=== PATIENT | female | born 1950 | race Caucasian/White ===

== ENCOUNTER → 2018-01-02 | Outpatient (CLI) | payer MEDICARE, MEDICAID ==
[~2018-01-02] MED LIST: ASPI81TA27 PO; ATEN-60 PO; CHOL20009 PO; IOHEXOL 350 MG/ML 100ML IJ ONE; LIS20T PO; OMEP20CA74 OR; READI-CAT 2 (BARIUM SULF)(VANILLA SMOOTHIE) 450ML ONE; SIMV10TA84 PO; TRIA50TA2 PO
[2018-01-02 12:10] VITALS: BP_SYST 122; BP_SYST 133; BP_DIAS 73; BP_DIAS 77
[2018-01-02 16:04] LABS: Urine Blood Negative /uL (Negative); Urine Specific Gravity 1.019 (1.001-1.035)
[2018-01-02 16:11] LABS: Basophils # (auto) 0 uL; Basophils % (auto) 0.6 % (0.0-2.0); Eosinophils # (auto) 0.1 uL; Eosinophils % (auto) 1.7 % (0.0-7.0); Hematocrit 43.7 % (36.0-46.0); Hemoglobin 14.3 g/dL (12.2-16.2); Lymphocytes # (auto) 2.4 uL; Lymphocytes % (auto) 30.5 % (10.0-50.0); Mean Corpuscular Hemoglobin 27.5 pg (28.0-32.0); Mean Corpuscular Hgb Conc. 32.7 g/dL (32.0-36.0); Mean Corpuscular Volume 84.1 fL (80.0-100.0); Monocytes # (auto) 0.9 uL; Monocytes % (auto) 10.9 % (0.0-12.0); Neutrophils # (auto) 4.4 uL; Neutrophils % (auto) 56.3 % (37.0-80.0); Nucleated Red Blood Cells % 0.9 %; Platelet Count (auto) 288 10^3/uL (140-450); Red Cell Distribution Width 13.9 % (11.8-14.3); White Blood Cell 7.9 10^3/uL (4.4-10.8)
[2018-01-02 16:17] LABS: Albumin 4.4 g/dL (3.4-5.0); Bilirubin, Direct 0.1 mg/dL (0-0.2); Bilirubin, Total 0.4 mg/dL (0.2-1.0); Calcium 9.9 mg/dL (8.5-10.1); Potassium 3.7 mmol/L (3.5-5.1); Total Protein 8.3 g/dL (6.4-8.2)
[2018-01-02 16:22] LABS: Thyroid Stimulating Hormone 2.9 uIU/mL (0.358-3.74)
== END | disposition home or self-care (01) ==
LOC: Rad HDHVI 11:58
PROVIDERS: ATTEND Internal Medicine Cardiovascular Disease
DX: E11.9 Type 2 diabetes mellitus without complications (principal); I10 Essential (primary) hypertension; D64.9 Anemia, unspecified; E78.5 Hyperlipidemia, unspecified; E03.9 Hypothyroidism, unspecified; N39.0 Urinary tract infection, site not specified; E55.9 Vitamin D deficiency, unspecified; K44.9 Diaphragmatic hernia without obstruction or gangrene; I70.0 Atherosclerosis of aorta; R97.8 Other abnormal tumor markers
CPT/HCPCS: 36415; 74177; 80048; 80061; 80076; 81003; 82306; 82565; 83036; 84443; 84702; 85025; 96360; G0463; J7050; Q9967

== ENCOUNTER → 2018-02-16 | Outpatient (CLI) | payer MEDICARE, MEDICAID ==
[~2018-02-16] VITALS: Ht 157.5 cm; Wt 67.1 kg
[~2018-02-16] MED LIST changes: +ADENOSINE 56 MG in GIVE UN-DILUTED 0 ML IV ONE; +ADENOSINE 90 MG/30 ML INJ IV ONE; -IOHEXOL 350 MG/ML 100ML IJ ONE; -READI-CAT 2 (BARIUM SULF)(VANILLA SMOOTHIE) 450ML ONE
== END | disposition home or self-care (01) ==
LOC: Rad HDHVI 08:25
PROVIDERS: ATTEND Internal Medicine Cardiovascular Disease
DX: I10 Essential (primary) hypertension (principal); R00.2 Palpitations; E11.9 Type 2 diabetes mellitus without complications; E78.5 Hyperlipidemia, unspecified; E03.9 Hypothyroidism, unspecified
CPT/HCPCS: 78452; 93005; 93306; 96374; 96375; A9500; J0153

== ENCOUNTER → 2018-04-14 | Outpatient (CLI) | payer MEDICARE, MEDICAID ==
[~2018-04-14] MED LIST changes: -ADENOSINE 56 MG in GIVE UN-DILUTED 0 ML IV ONE; -ADENOSINE 90 MG/30 ML INJ IV ONE
[2018-04-14 15:52] LABS: Urine Blood Negative /uL (Negative); Urine Specific Gravity 1.011 (1.001-1.035)
== END | disposition home or self-care (01) ==
LOC: LAB 11:12
PROVIDERS: ATTEND Internal Medicine Cardiovascular Disease
DX: N39.0 Urinary tract infection, site not specified (principal); I10 Essential (primary) hypertension; E11.9 Type 2 diabetes mellitus without complications; E03.9 Hypothyroidism, unspecified; E78.5 Hyperlipidemia, unspecified; Z87.891 Personal history of nicotine dependence; Z88.8 Allergy status to other drugs, medicaments and biological substances; Z98.51 Tubal ligation status
CPT/HCPCS: 81003; 87086; 87088; 87186

== ENCOUNTER → 2019-05-10 | Outpatient (CLI) | payer MEDICARE, MEDICAID ==
[~2019-05-10] MED LIST changes: +ASPI-404 PO; -ASPI81TA27 PO
[2019-05-10 12:27] LABS: Urine Blood Negative /uL (Negative); Urine Specific Gravity 1.023 (1.001-1.035)
[2019-05-10 12:37] LABS: Basophils # (auto) 0 uL; Basophils % (auto) 0.4 % (0.0-2.0); Eosinophils # (auto) 0.1 uL; Eosinophils % (auto) 1.5 % (0.0-7.0); Hematocrit 41.4 % (36.0-46.0); Hemoglobin 13.9 g/dL (12.2-16.2); Lymphocytes # (auto) 1.7 uL; Lymphocytes % (auto) 22.8 % (10.0-50.0); Mean Corpuscular Hemoglobin 29.4 pg (28.0-32.0); Mean Corpuscular Hgb Conc. 33.7 g/dL (32.0-36.0); Mean Corpuscular Volume 87.3 fL (80.0-100.0); Monocytes # (auto) 0.5 uL; Monocytes % (auto) 7.2 % (0.0-12.0); Neutrophils % (auto) 68.1 % (37.0-80.0); Platelet Count (auto) 269 10^3/uL (140-450); Red Blood Cells 4.74 10^6/uL (4.0-5.20); Red Cell Distribution Width 13.6 % (11.8-14.3); White Blood Cell 7.4 10^3/uL (4.4-10.8)
[2019-05-10 12:42] LABS: Albumin 3.9 g/dL (3.4-5.0); Potassium 3.7 mmol/L (3.5-5.1)
[2019-05-10 12:48] LABS: BUN/Creatinine Ratio 20.8; Bilirubin, Total 0.2 mg/dL (0.2-1.0); Calcium 9.4 mg/dL (8.5-10.1); Total Protein 7.7 g/dL (6.4-8.2)
[2019-05-10 12:53] LABS: Free T4 (Free Thyroxine) 1.01 ng/dL (0.89-1.76)
== END | disposition home or self-care (01) ==
LOC: LAB 09:05
PROVIDERS: ATTEND Internal Medicine
DX: E03.9 Hypothyroidism, unspecified (principal); K90.9 Intestinal malabsorption, unspecified; N39.0 Urinary tract infection, site not specified; D51.9 Vitamin B12 deficiency anemia, unspecified; Z79.899 Other long term (current) drug therapy
CPT/HCPCS: 36415; 80053; 80061; 81003; 82306; 82607; 83036; 84439; 84443; 85025; 87086

== ENCOUNTER → 2019-07-09 | Outpatient (CLI) | payer MEDICARE, MEDICAID | END | disposition home or self-care (01) | LOC: Rad HDHVI 12:22 | PROVIDERS: ATTEND Internal Medicine Cardiovascular Disease | DX: I07.1 Rheumatic tricuspid insufficiency (principal); I70.0 Atherosclerosis of aorta; R00.2 Palpitations; I10 Essential (primary) hypertension | CPT/HCPCS: 71046; 93306 ==

== ENCOUNTER → 2019-08-28 | Outpatient (CLI) | payer MEDICARE, MEDICAID ==
[2019-08-28 12:32] LABS: Basophils # (auto) 0 uL; Basophils % (auto) 0.3 % (0.0-2.0); Eosinophils # (auto) 0 uL; Eosinophils % (auto) 0.3 % (0.0-7.0); Hematocrit 39.1 % (36.0-46.0); Hemoglobin 12.7 g/dL (12.2-16.2); Lymphocytes # (auto) 1.1 uL; Lymphocytes % (auto) 13.4 % (10.0-50.0); Mean Corpuscular Hemoglobin 28.9 pg (28.0-32.0); Mean Corpuscular Hgb Conc. 32.5 g/dL (32.0-36.0); Monocytes # (auto) 0.4 uL; Neutrophils # (auto) 6.4 uL; Nucleated Red Blood Cells % 0.1 %; Platelet Count (auto) 365 10^3/uL (140-450); Red Blood Cells 4.39 10^6/uL (4.0-5.20); Red Cell Distribution Width 16.4 % (11.8-14.3); White Blood Cell 7.9 10^3/uL (4.4-10.8)
[2019-08-28 12:44] LABS: Albumin 3.6 g/dL (3.4-5.0); Calcium 8.9 mg/dL (8.5-10.1); Potassium 4.3 mmol/L (3.5-5.1)
[2019-08-28 12:48] LABS: BUN/Creatinine Ratio 19.8; Bilirubin, Total 0.3 mg/dL (0.2-1.0); Total Protein 7.6 g/dL (6.4-8.2)
== END | disposition home or self-care (01) ==
LOC: LAB 10:08
PROVIDERS: ATTEND Internal Medicine
DX: C71.9 Malignant neoplasm of brain, unspecified (principal)
CPT/HCPCS: 36415; 80053; 85025

== ENCOUNTER → 2019-09-11 | Outpatient (CLI) | payer MEDICARE, MEDICAID ==
[2019-09-11 11:57] LABS: Basophils # (auto) 0 uL; Basophils % (auto) 0.5 % (0.0-2.0); Eosinophils # (auto) 0.1 uL; Eosinophils % (auto) 1.8 % (0.0-7.0); Hematocrit 38.6 % (36.0-46.0); Hemoglobin 12.8 g/dL (12.2-16.2); Lymphocytes # (auto) 0.8 uL; Mean Corpuscular Hemoglobin 29.6 pg (28.0-32.0); Mean Corpuscular Hgb Conc. 33.1 g/dL (32.0-36.0); Mean Corpuscular Volume 89.6 fL (80.0-100.0); Monocytes # (auto) 0.6 uL; Monocytes % (auto) 11.7 % (0.0-12.0); Neutrophils # (auto) 3.7 uL; Platelet Count (auto) 257 10^3/uL (140-450); Red Blood Cells 4.31 10^6/uL (4.0-5.20); Red Cell Distribution Width 16.4 % (11.8-14.3); White Blood Cell 5.2 10^3/uL (4.4-10.8)
== END | disposition home or self-care (01) ==
LOC: LAB 11:16
PROVIDERS: ATTEND Internal Medicine
DX: D64.9 Anemia, unspecified (principal)
CPT/HCPCS: 36415; 85025

== ENCOUNTER → 2019-09-25 | Outpatient (CLI) | payer MEDICARE, MEDICAID ==
[2019-09-25 12:35] LABS: Basophils # (auto) 0 uL; Basophils % (auto) 0.5 % (0.0-2.0); Eosinophils # (auto) 0.1 uL; Eosinophils % (auto) 1.9 % (0.0-7.0); Hematocrit 41.1 % (36.0-46.0); Hemoglobin 13.4 g/dL (12.2-16.2); Lymphocytes # (auto) 0.6 uL; Lymphocytes % (auto) 10.4 % (10.0-50.0); Mean Corpuscular Hemoglobin 29.4 pg (28.0-32.0); Mean Corpuscular Hgb Conc. 32.7 g/dL (32.0-36.0); Mean Corpuscular Volume 89.9 fL (80.0-100.0); Monocytes # (auto) 0.7 uL; Monocytes % (auto) 12.3 % (0.0-12.0); Neutrophils # (auto) 4.4 uL; Neutrophils % (auto) 74.9 % (37.0-80.0); Platelet Count (auto) 226 10^3/uL (140-450); Red Blood Cells 4.57 10^6/uL (4.0-5.20); Red Cell Distribution Width 16.4 % (11.8-14.3); White Blood Cell 5.9 10^3/uL (4.4-10.8)
[2019-09-25 12:51] LABS: Potassium 4.2 mmol/L (3.5-5.1)
[2019-09-25 13:03] LABS: Albumin 3.7 g/dL (3.4-5.0); BUN/Creatinine Ratio 28.1; Bilirubin, Total 0.3 mg/dL (0.2-1.0); Calcium 9.8 mg/dL (8.5-10.1); Total Protein 7.9 g/dL (6.4-8.2)
== END | disposition home or self-care (01) ==
LOC: LAB 11:03
PROVIDERS: ATTEND Internal Medicine
DX: C71.9 Malignant neoplasm of brain, unspecified (principal)
CPT/HCPCS: 36415; 80053; 85025

== ENCOUNTER → 2019-10-05 | Outpatient (CLI) | payer MEDICARE, MEDICAID ==
[2019-10-05 12:25] LABS: Basophils # (auto) 0 uL; Basophils % (auto) 0.7 % (0.0-2.0); Eosinophils # (auto) 0.1 uL; Eosinophils % (auto) 2.2 % (0.0-7.0); Hematocrit 42.2 % (36.0-46.0); Hemoglobin 13.8 g/dL (12.2-16.2); Lymphocytes # (auto) 0.5 uL; Mean Corpuscular Hemoglobin 29.1 pg (28.0-32.0); Mean Corpuscular Hgb Conc. 32.8 g/dL (32.0-36.0); Mean Corpuscular Volume 88.8 fL (80.0-100.0); Monocytes # (auto) 0.5 uL; Monocytes % (auto) 11.7 % (0.0-12.0); Neutrophils # (auto) 2.9 uL; Neutrophils % (auto) 73.4 % (37.0-80.0); Nucleated Red Blood Cells % 0.1 %; Platelet Count (auto) 234 10^3/uL (140-450); Red Blood Cells 4.75 10^6/uL (4.0-5.20); Red Cell Distribution Width 15.6 % (11.8-14.3); White Blood Cell 3.9 10^3/uL (4.4-10.8)
[2019-10-05 12:38] LABS: Potassium 4.2 mmol/L (3.5-5.1)
[2019-10-05 12:43] LABS: Albumin 3.9 g/dL (3.4-5.0); BUN/Creatinine Ratio 28.6; Bilirubin, Total 0.2 mg/dL (0.2-1.0); Calcium 9.2 mg/dL (8.5-10.1); Total Protein 7.5 g/dL (6.4-8.2)
== END | disposition home or self-care (01) ==
LOC: LAB 10:49
PROVIDERS: ATTEND Internal Medicine
DX: C71.9 Malignant neoplasm of brain, unspecified (principal)
CPT/HCPCS: 36415; 80053; 85025

== ENCOUNTER → 2019-10-19 | Outpatient (CLI) | payer MEDICARE, MEDICAID ==
[2019-10-19 15:52] LABS: Basophils # (auto) 0 uL; Basophils % (auto) 0.5 % (0.0-2.0); Eosinophils # (auto) 0 uL; Eosinophils % (auto) 0.7 % (0.0-7.0); Hematocrit 41.1 % (36.0-46.0); Hemoglobin 13.6 g/dL (12.2-16.2); Lymphocytes # (auto) 0.6 uL; Lymphocytes % (auto) 12.6 % (10.0-50.0); Mean Corpuscular Hemoglobin 29.3 pg (28.0-32.0); Mean Corpuscular Volume 88.7 fL (80.0-100.0); Monocytes # (auto) 0.5 uL; Monocytes % (auto) 10.9 % (0.0-12.0); Neutrophils # (auto) 3.4 uL; Neutrophils % (auto) 75.3 % (37.0-80.0); Nucleated Red Blood Cells % 0.3 %; Platelet Count (auto) 182 10^3/uL (140-450); Red Blood Cells 4.64 10^6/uL (4.0-5.20); Red Cell Distribution Width 15.1 % (11.8-14.3); White Blood Cell 4.6 10^3/uL (4.4-10.8)
[2019-10-19 16:08] LABS: Albumin 3.6 g/dL (3.4-5.0); Calcium 9.6 mg/dL (8.5-10.1); Potassium 4.1 mmol/L (3.5-5.1)
[2019-10-19 16:14] LABS: Bilirubin, Total 0.2 mg/dL (0.2-1.0); Total Protein 7.2 g/dL (6.4-8.2)
== END | disposition home or self-care (01) ==
LOC: LAB 11:31
PROVIDERS: ATTEND Internal Medicine
DX: C71.9 Malignant neoplasm of brain, unspecified (principal)
CPT/HCPCS: 36415; 80053; 85025

== ENCOUNTER → 2019-11-22 | Outpatient (CLI) | payer MEDICARE, MEDICAID ==
[2019-11-22 11:52] LABS: Basophils # (auto) 0 10 ^3/uL (0-0.2); Basophils % (auto) 0.2 % (0.0-2.0); Eosinophils # (auto) 0 10 ^3/uL (0-0.8); Eosinophils % (auto) 0.6 % (0.0-7.0); Hematocrit 41.6 % (36.0-46.0); Hemoglobin 13.7 g/dL (12.2-16.2); Lymphocytes # (auto) 0.8 10 ^3/uL (0.4-5.4); Lymphocytes % (auto) 12.2 % (10.0-50.0); Mean Corpuscular Hemoglobin 28.9 pg (28.0-32.0); Mean Corpuscular Hgb Conc. 32.9 g/dL (32.0-36.0); Mean Corpuscular Volume 87.8 fL (80.0-100.0); Monocytes # (auto) 0.6 10 ^3/uL (0-1.3); Monocytes % (auto) 9.4 % (0.0-12.0); Neutrophils # (auto) 4.8 10 ^3/uL (1.6-8.6); Neutrophils % (auto) 77.6 % (37.0-80.0); Platelet Count (auto) 219 10^3/uL (140-450); Red Blood Cells 4.74 10^6/uL (4.0-5.20); Red Cell Distribution Width 14.2 % (11.8-14.3); White Blood Cell 6.2 10^3/uL (4.4-10.8)
[2019-11-22 12:02] LABS: Albumin 3.8 g/dL (3.4-5.0); Calcium 9.1 mg/dL (8.5-10.1); Potassium 3.5 mmol/L (3.5-5.1)
[2019-11-22 12:07] LABS: BUN/Creatinine Ratio 26.2; Bilirubin, Total 0.2 mg/dL (0.2-1.0); Total Protein 7.3 g/dL (6.4-8.2)
== END | disposition home or self-care (01) ==
LOC: LAB 09:20
PROVIDERS: ATTEND Internal Medicine
DX: C71.9 Malignant neoplasm of brain, unspecified (principal)
CPT/HCPCS: 36415; 80053; 85025

== ENCOUNTER → 2019-12-06 | Outpatient (CLI) | payer MEDICARE, MEDICAID ==
[2019-12-06 11:53] LABS: Basophils # (auto) 0 10 ^3/uL (0-0.2); Basophils % (auto) 0.4 % (0.0-2.0); Eosinophils # (auto) 0 10 ^3/uL (0-0.8); Eosinophils % (auto) 0.9 % (0.0-7.0); Hematocrit 43.3 % (36.0-46.0); Lymphocytes # (auto) 0.7 10 ^3/uL (0.4-5.4); Lymphocytes % (auto) 15.5 % (10.0-50.0); Mean Corpuscular Hgb Conc. 32.4 g/dL (32.0-36.0); Mean Corpuscular Volume 86.5 fL (80.0-100.0); Monocytes # (auto) 0.4 10 ^3/uL (0-1.3); Monocytes % (auto) 9.2 % (0.0-12.0); Neutrophils # (auto) 3.5 10 ^3/uL (1.6-8.6); Nucleated Red Blood Cells % 0.1 %; Platelet Count (auto) 264 10^3/uL (140-450); Red Cell Distribution Width 14.6 % (11.8-14.3); White Blood Cell 4.8 10^3/uL (4.4-10.8)
[2019-12-06 12:01] LABS: Albumin 3.7 g/dL (3.4-5.0); Calcium 9.5 mg/dL (8.5-10.1); Potassium 3.9 mmol/L (3.5-5.1)
[2019-12-06 12:04] LABS: BUN/Creatinine Ratio 24.1; Bilirubin, Total 0.2 mg/dL (0.2-1.0); Total Protein 7.5 g/dL (6.4-8.2)
== END | disposition home or self-care (01) ==
LOC: LAB 10:42
PROVIDERS: ATTEND Internal Medicine Cardiovascular Disease
DX: C71.9 Malignant neoplasm of brain, unspecified (principal)
CPT/HCPCS: 36415; 80053; 85025

== ENCOUNTER → 2020-01-02 | Outpatient (CLI) | payer MEDICARE, MEDICAID ==
[2020-01-02 12:02] LABS: Basophils # (auto) 0 10 ^3/uL (0-0.2); Basophils % (auto) 0.2 % (0.0-2.0); Eosinophils # (auto) 0 10 ^3/uL (0-0.8); Eosinophils % (auto) 0.7 % (0.0-7.0); Hematocrit 41.1 % (36.0-46.0); Hemoglobin 13.5 g/dL (12.2-16.2); Lymphocytes # (auto) 0.5 10 ^3/uL (0.4-5.4); Lymphocytes % (auto) 11.8 % (10.0-50.0); Mean Corpuscular Hemoglobin 28.7 pg (28.0-32.0); Mean Corpuscular Hgb Conc. 32.8 g/dL (32.0-36.0); Mean Corpuscular Volume 87.4 fL (80.0-100.0); Monocytes # (auto) 0.5 10 ^3/uL (0-1.3); Monocytes % (auto) 11.2 % (0.0-12.0); Neutrophils # (auto) 3.4 10 ^3/uL (1.6-8.6); Neutrophils % (auto) 76.1 % (37.0-80.0); Nucleated Red Blood Cells % 0.1 %; Platelet Count (auto) 143 10^3/uL (140-450); White Blood Cell 4.4 10^3/uL (4.4-10.8)
[2020-01-02 12:12] LABS: Potassium 3.9 mmol/L (3.5-5.1)
[2020-01-02 12:19] LABS: Albumin 3.7 g/dL (3.4-5.0); BUN/Creatinine Ratio 35.2; Bilirubin, Total 0.4 mg/dL (0.2-1.0); Calcium 9.3 mg/dL (8.5-10.1); Total Protein 7.2 g/dL (6.4-8.2)
== END | disposition home or self-care (01) ==
LOC: LAB 09:53
PROVIDERS: ATTEND Internal Medicine
DX: C71.9 Malignant neoplasm of brain, unspecified (principal)
CPT/HCPCS: 36415; 80053; 85025

== ENCOUNTER → 2020-01-14 | Outpatient (CLI) | payer MEDICARE, MEDICAID ==
[~2020-01-14] MED LIST changes: -ASPI-404 PO; +ASPI-543 PO
[2020-01-14 11:46] LABS: Basophils # (auto) 0 10 ^3/uL (0-0.2); Basophils % (auto) 0.3 % (0.0-2.0); Eosinophils # (auto) 0 10 ^3/uL (0-0.8); Eosinophils % (auto) 0.8 % (0.0-7.0); Hematocrit 39.6 % (36.0-46.0); Hemoglobin 12.8 g/dL (12.2-16.2); Lymphocytes # (auto) 0.5 10 ^3/uL (0.4-5.4); Lymphocytes % (auto) 16.2 % (10.0-50.0); Mean Corpuscular Hemoglobin 28.3 pg (28.0-32.0); Mean Corpuscular Hgb Conc. 32.4 g/dL (32.0-36.0); Mean Corpuscular Volume 87.6 fL (80.0-100.0); Monocytes # (auto) 0.2 10 ^3/uL (0-1.3); Monocytes % (auto) 6.8 % (0.0-12.0); Neutrophils # (auto) 2.4 10 ^3/uL (1.6-8.6); Neutrophils % (auto) 75.9 % (37.0-80.0); Platelet Count (auto) 160 10^3/uL (140-450); Red Blood Cells 4.52 10^6/uL (4.0-5.20); Red Cell Distribution Width 14.3 % (11.8-14.3); White Blood Cell 3.1 10^3/uL (4.4-10.8)
== END | disposition home or self-care (01) ==
LOC: LAB 10:12
PROVIDERS: ATTEND Internal Medicine
DX: C71.9 Malignant neoplasm of brain, unspecified (principal)
CPT/HCPCS: 36415; 80048; 85025

== ENCOUNTER → 2020-02-05 | Outpatient (CLI) | payer MEDICARE, MEDICAID ==
[~2020-02-05] MED LIST changes: +ASPI-404 PO; -ASPI-543 PO
[2020-02-05 15:51] LABS: Albumin 3.5 g/dL (3.4-5.0); Calcium 8.9 mg/dL (8.5-10.1); Potassium 3.9 mmol/L (3.5-5.1)
[2020-02-05 15:55] LABS: Bilirubin, Total 0.3 mg/dL (0.2-1.0); Total Protein 6.9 g/dL (6.4-8.2)
[2020-02-05 16:01] LABS: Basophils # (auto) 0 10 ^3/uL (0-0.2); Basophils % (auto) 0.2 % (0.0-2.0); Eosinophils # (auto) 0 10 ^3/uL (0-0.8); Eosinophils % (auto) 0.3 % (0.0-7.0); Hematocrit 37.3 % (36.0-46.0); Hemoglobin 12.4 g/dL (12.2-16.2); Lymphocytes # (auto) 0.6 10 ^3/uL (0.4-5.4); Lymphocytes % (auto) 10.8 % (10.0-50.0); Mean Corpuscular Hemoglobin 29.8 pg (28.0-32.0); Mean Corpuscular Hgb Conc. 33.2 g/dL (32.0-36.0); Mean Corpuscular Volume 89.8 fL (80.0-100.0); Monocytes # (auto) 0.6 10 ^3/uL (0-1.3); Monocytes % (auto) 9.6 % (0.0-12.0); Neutrophils # (auto) 4.6 10 ^3/uL (1.6-8.6); Neutrophils % (auto) 79.1 % (37.0-80.0); Platelet Count (auto) 257 10^3/uL (140-450); Red Blood Cells 4.16 10^6/uL (4.0-5.20); Red Cell Distribution Width 16.4 % (11.8-14.3); White Blood Cell 5.9 10^3/uL (4.4-10.8)
== END | disposition home or self-care (01) ==
LOC: LAB 11:28
PROVIDERS: ATTEND Internal Medicine
DX: C71.9 Malignant neoplasm of brain, unspecified (principal)
CPT/HCPCS: 36415; 80053; 85025

== ENCOUNTER → 2020-02-11 | Outpatient (CLI) | payer MEDICARE, MEDICAID ==
[2020-02-11 12:10] LABS: Basophils # (auto) 0 10 ^3/uL (0-0.2); Basophils % (auto) 0.6 % (0.0-2.0); Eosinophils # (auto) 0 10 ^3/uL (0-0.8); Eosinophils % (auto) 0.4 % (0.0-7.0); Hematocrit 39.4 % (36.0-46.0); Lymphocytes # (auto) 0.7 10 ^3/uL (0.4-5.4); Lymphocytes % (auto) 16.3 % (10.0-50.0); Mean Corpuscular Hemoglobin 29.7 pg (28.0-32.0); Mean Corpuscular Hgb Conc. 32.9 g/dL (32.0-36.0); Mean Corpuscular Volume 90.2 fL (80.0-100.0); Monocytes # (auto) 0.4 10 ^3/uL (0-1.3); Neutrophils # (auto) 2.9 10 ^3/uL (1.6-8.6); Neutrophils % (auto) 71.7 % (37.0-80.0); Nucleated Red Blood Cells % 0.3 %; Platelet Count (auto) 205 10^3/uL (140-450); Red Blood Cells 4.37 10^6/uL (4.0-5.20); Red Cell Distribution Width 16.6 % (11.8-14.3); White Blood Cell 4.1 10^3/uL (4.4-10.8)
[2020-02-11 12:28] LABS: Potassium 3.9 mmol/L (3.5-5.1)
[2020-02-11 12:56] LABS: Albumin 3.8 g/dL (3.4-5.0); Bilirubin, Total 0.3 mg/dL (0.2-1.0); Calcium 9.2 mg/dL (8.5-10.1); Total Protein 7.2 g/dL (6.4-8.2)
== END | disposition home or self-care (01) ==
LOC: LAB 09:11
PROVIDERS: ATTEND Internal Medicine Cardiovascular Disease
DX: C71.9 Malignant neoplasm of brain, unspecified (principal)
CPT/HCPCS: 36415; 80053; 85025

== ENCOUNTER → 2020-02-25 | Outpatient (CLI) | payer MEDICARE, MEDICAID ==
[~2020-02-25] MED LIST changes: -ASPI-404 PO; +ASPI-543 PO
[2020-02-25 12:22] LABS: Basophils # (auto) 0 10 ^3/uL (0-0.2); Basophils % (auto) 0.2 % (0.0-2.0); Eosinophils # (auto) 0.1 10 ^3/uL (0-0.8); Eosinophils % (auto) 1.3 % (0.0-7.0); Hematocrit 38.2 % (36.0-46.0); Hemoglobin 12.6 g/dL (12.2-16.2); Lymphocytes # (auto) 0.6 10 ^3/uL (0.4-5.4); Lymphocytes % (auto) 11.3 % (10.0-50.0); Mean Corpuscular Hemoglobin 30.2 pg (28.0-32.0); Mean Corpuscular Volume 91.5 fL (80.0-100.0); Monocytes # (auto) 0.5 10 ^3/uL (0-1.3); Monocytes % (auto) 9.2 % (0.0-12.0); Platelet Count (auto) 274 10^3/uL (140-450); Red Blood Cells 4.17 10^6/uL (4.0-5.20); Red Cell Distribution Width 16.9 % (11.8-14.3); White Blood Cell 5.2 10^3/uL (4.4-10.8)
[2020-02-25 12:45] LABS: Potassium 3.8 mmol/L (3.5-5.1)
[2020-02-25 13:11] LABS: Albumin 3.5 g/dL (3.4-5.0); BUN/Creatinine Ratio 26.4; Bilirubin, Total 0.2 mg/dL (0.2-1.0); Calcium 9.2 mg/dL (8.5-10.1)
== END | disposition home or self-care (01) ==
LOC: LAB 08:20
PROVIDERS: ATTEND Internal Medicine
DX: C71.9 Malignant neoplasm of brain, unspecified (principal)
CPT/HCPCS: 36415; 80053; 85025

== ENCOUNTER → 2020-07-08 | Outpatient (CLI) | payer MEDICARE, MEDICAID | END | disposition home or self-care (01) | LOC: Rad HDHVI 12:13 | PROVIDERS: ATTEND Internal Medicine | DX: I70.0 Atherosclerosis of aorta (principal); Z01.818 Encounter for other preprocedural examination | CPT/HCPCS: 71046 ==

== ENCOUNTER → 2020-07-09 | Outpatient (CLI) | payer MEDICARE, MEDICAID ==
[2020-07-09 15:56] LABS: Urine Blood Negative /uL (Negative); Urine Specific Gravity 1.023 (1.001-1.035)
[2020-07-09 15:58] LABS: Basophils # (auto) 0.2 10 ^3/uL (0-0.2); Basophils % (auto) 4.3 % (0.0-2.0); Eosinophils # (auto) 0 10 ^3/uL (0-0.8); Eosinophils % (auto) 0.7 % (0.0-7.0); Hemoglobin 12.9 g/dL (12.2-16.2); Lymphocytes # (auto) 0.8 10 ^3/uL (0.4-5.4); Lymphocytes % (auto) 19.6 % (10.0-50.0); Mean Corpuscular Hemoglobin 30.6 pg (28.0-32.0); Mean Corpuscular Volume 90.1 fL (80.0-100.0); Monocytes # (auto) 0.4 10 ^3/uL (0-1.3); Monocytes % (auto) 10.4 % (0.0-12.0); Neutrophils # (auto) 2.6 10 ^3/uL (1.6-8.6); Nucleated Red Blood Cells % 0.1 %; Platelet Count (auto) 232 10^3/uL (140-450); Red Blood Cells 4.22 10^6/uL (4.0-5.20); Red Cell Distribution Width 13.2 % (11.8-14.3)
[2020-07-09 16:05] LABS: Albumin 3.8 g/dL (3.4-5.0); Calcium 9.2 mg/dL (8.5-10.1); Potassium 3.8 mmol/L (3.5-5.1)
[2020-07-09 16:11] LABS: BUN/Creatinine Ratio 21.2; Bilirubin, Total 0.4 mg/dL (0.2-1.0); INR 0.97 (0.9-1.15); Partial Thromboplastin Time 32.5 sec (23.0-31.2); Total Protein 7.1 g/dL (6.4-8.2)
== END | disposition home or self-care (01) ==
LOC: Rad HDHVI 13:11
PROVIDERS: ATTEND Internal Medicine
DX: Z01.812 Encounter for preprocedural laboratory examination (principal); I10 Essential (primary) hypertension; I70.0 Atherosclerosis of aorta; I07.1 Rheumatic tricuspid insufficiency; E78.00 Pure hypercholesterolemia, unspecified; R42 Dizziness and giddiness; R07.89 Other chest pain
CPT/HCPCS: 36415; 80053; 81003; 85025; 85610; 85730; 93306

== ENCOUNTER 2024-09-07 15:59 | Inpatient (IN) | payer MEDICAID, MEDICARE, OTHER ==
[~2024-09-07] VITALS: Ht 156.2 cm; Wt 62.6 kg
[~2024-09-07 15:59] MED LIST changes: +SIMV10TA20 PO; -SIMV10TA84 PO; -TRIA50TA2 PO; +TRIA75TA11 PO
--- NOTE | 2024-09-07 16:19 | ED.PDOC ---
GI ASSESSMENT HPI Comments 73 y.o female presents to the ED for a chief complaint of nausea and vomiting multiple events of vomiting blood s/p eating a sandwich yesterday associated with black stool, dizziness and SOB on exertion x two days. Patient is feeling weaker than usual, states symptoms are all new onset with no previous respiratory issues or oxygen use at home. Patient denies any nausea now, fever, chills or abdominal pain. SPO2 read 97% RA upon ED arrival. Time Seen by MD: 16:12 Primary Care Provider: NASRIN Reviewed Notes: Nurses Notes, Medications, Allergies Allergies: Coded Allergies: Atenolol (Verified Allergy, Severe, 11/12/14) Levofloxacin (Verified Allergy, Unknown, 06/09/21) Home Meds Active Scripts Atenolol (Atenolol) 25 Mg Tab, 1 TAB PO DAILY, #30 TAB 0 Refills Prov:FRANTZ CAMEJO MD 11/07/15 Reported Medications Lisinopril (ZESTRIL TABLET) 20 Mg Tb, 20 MG PO DAILY 11/05/15 Hydrochlorothiazide W/Triamter (Hctz/Triamterene) 1 Tab Tab, 25 MG PO DAILY, TAB 11/05/15 Omeprazole (PRILOSEC) 20 Mg Cap, 20 MG OR BID, CAP 11/05/15 Simvastatin (Simvastatin) 10 Mg Tab, 10 MG PO DAILY, TAB 11/05/15 Cholecalciferol (VITAMIN D) 2,000 Unit Tab, 2000 UNIT PO DAILY, TAB 11/05/15 Aspirin (Aspir-Low) 81 Mg Tab, 81 MG PO DAILY for 30 Days, MG 11/05/15 Information Source: Patient Mode of Arrival: Ambulatory Timing: Days Duration: Since onset Quality: None Vomitus: Soft, Watery, Bloody, Coffee Grounds Stool: Black Severity: Moderate Recent: Possible spoiled food Recent Hx of: None Pain Location: None Modifying Factors: Nothing Associated sign and symptoms: Nausea, Vomiting, Melena, Blood in Stool Past Medical History PAST MEDICAL HISTORY: GERD, High Lipids, HTN Surgical History: Hernia Repair, Tubal Ligation CAUSTIC MIXER History: Uterine Fibroids Family History Family History: No family hx of Heart iram Social History Smoker: Other Alcohol: Denies ETOH Use Drugs: Denies Drug Use Lives In: Home Constitutional: reports: weakness; denies: chills, diaphoresis, fatigue, fever, malaise, sweats, others EENTM: denies: blurred vision, double vision, ear bleeding, ear discharge, ear drainage, ear pain, ear ringing, eye pain, eye redness, hearing loss, mouth pain, mouth swelling, nasal discharge, nose bleeding, nose congestion, nose pain, photophobia, tearing, throat pain, throat swelling, voice changes, others Respiratory: reports: shortness of breath, SOB with excertion; denies: cough, hemoptysis, orthopnea, SOB at rest, stridor, wheezing, others Cardiovascular: denies: chest pain, dizzy spells, diaphoresis, Dyspnea on exer tion, edema, irregular heart beat, left arm pain, lightheadedness, palpitations, PND, syncope, others Gastrointestinal: reports: hematemesis, melena, nausea, vomiting; denies: abdomen distended, abdominal pain, blood streaked bowels, constipated, diarrhea, dysphagia, difficulty swallowing, poor appetite, poor fluid intake, rectal bleeding, rectal pain, others Genitourinary: denies: abnormal vagina bleeding, burning, dyspareunia, dysuria, flank pain, frequency, hematuria, incontinence, pain, , vagina discharge, urgency, others Neurological: reports: dizziness; denies: fainting, headache, left sided numbness, left sided weakness, numbness, paresthesia, pre-existing deficit, right sided numbness, right sided weakness, seizure, speech problems, tingling, tremors, weakness, others Musculoskeletal: denies: back pain, gout, joint pain, joint swelling, muscle pain, muscle stiffness, neck pain, others Integumetry: denies: bruises, change in color, change in hair/nails, dryness, laceration, lesions, lumps, rash, wounds, others Allergic/Immunocompromised: denies: Difficulty Healing, Frequent Infections, Hives, Itching, others Hematologic/Lymphatic: denies: anemia, blood clots, easy bleeding, easy bruising, swollen glands, others Endocrine: denies: excessive hunger, excessive sweating, excessive thirst, excessive urination, flushing, intolerance to cold, intolerance to heat, unexplained weight gain, unexplained weight loss, others Psychiatric: denies: anxiety, bipolar disorder, depression, hopeless, panic disorder, schizophrenia, sleepless, suicidal, others All Other Systems: Reviewed and Negative Physical Exam General Appearance: Moderate Distress (Patient appears to be moderate distress due to her anxiety related to her chief complaint. Patient appears to be in poor overall health.), Normal HEENT: Normal ENT Inspection, Pharynx Normal, TMs Normal Neck: Full Range of Motion, Non-Tender, Normal, Normal Inspection Respiratory: Chest Non-Tender, Lungs Clear, No Accessory Muscle Use, No Respiratory Distress, Normal Breath Sounds Cardiovascular: No Edema, No JVD, No Murmur, No Gallop, Normal Peripheral Pulses, Regular Rate/Rhythm Breast Exam: Deferred Gastrointestinal: Non Tender, No Pulsatile Mass, Normal Bowel Sounds, Soft Genitalia: Deferred Pelvic: Deferred Rectal: Deferred Extremities: No calf tenderness, Normal capillary refill, Normal inspection, Normal range of motion, Non-tender, No pedal edema Musculoskeletal : Apperance: Normal Neurologic: Alert, No Motor Deficits, Normal Affect, Normal Mood, No Sensory Deficits Cerebellar Function: Normal Reflexes: Normal Skin: Dry, Normal Color, Warm Lymphatic: No Adenopathy Was a procedure done? Was a procedure done?: No GI differential Dx Differential Diagnosis: Appendicitis, Bowel Obstruction, Diverticular disease, Gastritis/PUD, Gastroenteritis, Inflammatory BD, Dehydration, Electrolyte Imbalance, Food Poisoning, Viral, Esophageal Varicies, Other (GI bleed) X-Ray, Labs, Meds, VS Vital Signs Date Time Temp Pulse Resp B/P (MAP) Pulse Ox O2 Delivery O2 Flow Rate FiO2 09/07/24 17:12 98.3 85 16 101/59 (73) 94 98.3 09/07/24 16:28 97.7 89 20 105/63 (77) 97 09/07/24 16:23 92 Lab Test 09/07/24 20:31 09/07/24 18:53 09/07/24 18:32 09/07/24 16:42 Range/Units Urine Color Yellow Yellow Urine Clarity Turbid H Clear Urine pH 5.5 5.0-9.0 Urine Specific [place] 1.021 1.001-1.035 Urine Protein Trace H Negative Urine Ketones Trace Negative Urine Blood 1+ H Negative /uL Urine Nitrite 2+ H Negative Urine Bilirubin Negative Negative Urine Urobilinogen Normal Negative mg/dL Urine Leukocyte Esterase 3+ Negative /uL Urine RBC 3 0 - 4 /hpf Urine WBC 71 0 - 5 /hpf Urine WBC Clumps Present None Seen /hpf Urine Squamous Epithelial Cells Few <5 /hpf Urine Bacteria Many H None Seen /hpf Urine Mucus Moderate None Seen Urine Glucose Normal Normal mg/dL Lactic Acid Level 2.1 *H 2.8 *H 0.4-2.0 mmol/L Troponin I High Sensitivity < 3 L < 3 L </=34 ng/L White Blood Count 5.3 4.4-10.8 10^3/uL Red Blood Count 3.09 L 4.0-5.20 10^6/uL Hemoglobin 9.1 L 12.2-16.2 g/dL Hematocrit 27.8 L 36.0-46.0 % Mean Corpuscular Volume 90.2 80.0-100.0 fL Mean Corpuscular Hemoglobin 29.5 28.0-32.0 pg Mean Corpuscular Hemoglobin Concent 32.7 32.0-36.0 g/dL Red Cell Distribution Width 14.7 H 11.8-14.3 % Platelet Count 310 140-450 10^3/uL Mean Platelet Volume 8.4 6.9-10.8 fL Neutrophils (%) (Auto) 71.4 37.0-80.0 % Lymphocytes (%) (Auto) 18.4 10.0-50.0 % Monocytes (%) (Auto) 8.2 0.0-12.0 % Eosinophils (%) (Auto) 1.5 0.0-7.0 % Basophils (%) (Auto) 0.5 0.0-2.0 % Neutrophils # (Auto) 3.8 1.6-8.6 10 ^3/uL Lymphocytes # (Auto) 1.0 0.4-5.4 10 ^3/uL Monocytes # (Auto) 0.4 0-1.3 10 ^3/uL Eosinophils # (Auto) 0.1 0-0.8 10 ^3/uL Basophils # (Auto) 0 0-0.2 10 ^3/uL Nucleated Red Blood Cells 0.1 % Sodium Level 143 136-145 mmol/L Potassium Level 3.7 3.5-5.1 mmol/L Chloride Level 108 H 98-107 mmol/L Carbon Dioxide Level 26 20-31 mmol/L Anion Gap 9 5-15 Blood Urea Nitrogen 36 H 9-23 mg/dL Creatinine 1.13 H 0.550-1.02 mg/dL Glomerular Filtration Rate Calc 52 >90 mL/min BUN/Creatinine Ratio 31.9 H 10.0-20.0 Serum Glucose 128 H 74-106 mg/dL Calcium Level 10.1 8.7-10.4 mg/dL Total Bilirubin 0.2 0.2-1.0 mg/dL Aspartate Amino Transferase (AST) 11 L 13-40 U/L Alanine Aminotransferase (ALT) 17 7-40 U/L Alkaline Phosphatase 67 46-116 U/L Total Protein 6.0 5.7-8.2 g/dL Albumin 4.2 3.2-4.8 g/dL Lipase 34 12-53 U/L Current Medications Medications (Trade) Dose Ordered Sig/Reggie Route Start Time Stop Time Status Last Admin Ondansetron HCl (Zofran Po) 4 mg ONCE ONCE PO 09/07/24 16:30 09/07/24 16:31 DC 09/07/24 16:52 X-Ray, Labs, Meds, VS Comment All studies performed the ED were evaluated by me personally. Laboratories revealed a progressive anemia with a elevated lactic acid man what appears to be acute on chronic renal concerns. Patient has a significant UTI. CT of chest abdomen pelvis was remarkable for a mild distal colonic diverticulosis. Duplicated left renal collecting system. [id number] central lobar emphysema that is some mild coronary artery concerns. I attempted to ascertain an imaging study with contrast to evaluate bleeding concerns, but did the patient has significant kidney issues, I was unable to accomplish that. Patient will be admitted for management of her renal issues as well as assessment of her possible GI bleed and IV antibiotics to address her current urinary tract infection. Time of 1ST Reevaluation: 21:58 Reevaluation 1ST: Improved Consultation: PCP Patient Education/Counseling: Diagnosis, Treatment, Prognosis Family Education/Counseling: Diagnosis, Treatment, No Family Present Departure 1 Departure Time of Disposition: 21:58 Impression: Primary Impression: [id number] kidney injury Additional Impressions: Anemia Elevated lactic acid level UTI (urinary tract infection) Disposition: ADMITTED INPATIENT Condition: Stable Discharged With: Self Critical Care Note Critical Care Time?: No Stability Stability form required: No I personally scribed for YANYD MONTAÑO PAC ([email or web address]) on 09/07/24 at 16:19. Electronically submitted by Kassi Flores ([facility]). YANDY MONTAÑO PAC Sep 07, 2024 16:19
[2024-09-07] MEDS: ONDANSETRON ODT 4 MG TAB PO ONE (16:52)
--- NOTE | 2024-09-07 17:34 | ECG ---
[facility] [place] Test Date: 2024-09-07 Test Time: 16:23:25 Pat Name: GINNA CHURCH Department: ER Room: 0214T Gender: F Geospatial Developer: LISA : 1950 Requested By: YANDY MONTAÑO Order Number: [id number] Reading MD: Rigo Mcleod Measurements Intervals [place] Rate: 92 P: 38 CA: 158 QRS: 27 QRSD: 93 T: 26 QT: 361 QTc: 447 Interpretive Statements Sinus rhythm Low voltage, precordial leads Electronically Signed On 09-08-2024 14:48:27 PST by Rigo Mcleod Please click the below link to view image of tracing.
[2024-09-07 17:37] LABS: Basophils # (auto) 0 10 ^3/uL (0-0.2); Basophils % (auto) 0.5 % (0.0-2.0); Eosinophils # (auto) 0.1 10 ^3/uL (0-0.8); Eosinophils % (auto) 1.5 % (0.0-7.0); Hematocrit 27.8 % (36.0-46.0); Hemoglobin 9.1 g/dL (12.2-16.2); Lymphocytes % (auto) 18.4 % (10.0-50.0); Mean Corpuscular Hemoglobin 29.5 pg (28.0-32.0); Mean Corpuscular Hgb Conc. 32.7 g/dL (32.0-36.0); Mean Corpuscular Volume 90.2 fL (80.0-100.0); Monocytes # (auto) 0.4 10 ^3/uL (0-1.3); Monocytes % (auto) 8.2 % (0.0-12.0); Neutrophils # (auto) 3.8 10 ^3/uL (1.6-8.6); Neutrophils % (auto) 71.4 % (37.0-80.0); Nucleated Red Blood Cells % 0.1 %; Platelet Count (auto) 310 10^3/uL (140-450); Red Blood Cells 3.09 10^6/uL (4.0-5.20); Red Cell Distribution Width 14.7 % (11.8-14.3); White Blood Cell 5.3 10^3/uL (4.4-10.8)
[2024-09-07 17:58] LABS: Alanine Aminotransferase 17 U/L (7-40); Albumin 4.2 g/dL (3.2-4.8); Alkaline Phosphatase 67 U/L (46-116); Anion Gap 9 (5-15); BUN/Creatinine Ratio 31.9 (10.0-20.0); Calcium 10.1 mg/dL (8.7-10.4); Carbon Dioxide 26 mmol/L (20-31); Lipase 34 U/L (12-53); Potassium 3.7 mmol/L (3.5-5.1); Sodium 143 mmol/L (136-145)
[2024-09-07 18:07] LABS: Aspartate Aminotransferase 11 U/L (13-40); Bilirubin, Total 0.2 mg/dL (0.2-1.0); Blood Urea Nitrogen 36 mg/dL (9-23); Chloride 108 mmol/L (98-107); Glucose 128 mg/dL (74-106)
[2024-09-07 18:13] LABS: Lactic Acid w/Reflex 2.8 mmol/L (0.4-2.0)
[2024-09-07] MEDS: IOHEXOL 300 MG/ML 100ML BOTTLE IJ ONE (19:14)
[2024-09-07] MEDS: SODIUM CHLORIDE 0.9% 1,000 ML IV ONE (20:27)
[2024-09-07 21:18] LABS: Urine Bacteria MANY /hpf (None Seen); Urine Blood 1+ /uL (Negative); Urine Clarity Turbid (Clear); Urine Color Yellow (Yellow); Urine Mucus MODERATE (None Seen); Urine Protein, UAD TRACE (Negative); Urine Specific Gravity 1.021 (1.001-1.035); Urine Squamous Epithelial Cell FEW /hpf (<5); Urine Urobilinogen Normal (Negative); Urine WBC 71 /hpf (0 - 5); Urine WBC Clumps PRESENT /hpf (None Seen); Urine pH 5.5 (5.0-9.0)
--- NOTE | 2024-09-07 21:36 | DVH ---
CLINICAL HISTORY: GI BLEED TECHNIQUE: CT of the chest, abdomen and pelvis was performed without IV contrast. This exam was perfo rmed according to our departmental dose optimization program. Up-to-date CT equipment and radiation d ose reduction techniques are utilized as appropriate. [Radimetrics Exposure Report] CTDI: [CTDIvol] DLP: 448.68 COMPARISON: None FINDINGS: CHEST FINDINGS: Lower Neck: Unremarkable Axilla, Mediastinum and Gypsy: Moderate hiatal hernia. There is no axillary or mediastinal lymphadenop athy. Heart and Great Vessels: Normal-sized heart without pericardial effusion. At least mild calcified cor onary artery disease greatest in the left anterior descending artery. The thoracic aorta is normal i n caliber with moderate calcified atherosclerotic plaque. Central pulmonary arteries are normal calib er. Airway, Lungs and Pleura: Trachea and central airways are patent. There is mild centrilobular emphyse ma. There is a somewhat linear sub 5 mm nodule in the left upper lobe on series 4, image 29. Linear a reas of atelectasis or scarring in both lungs. There is no consolidative pneumonia, pleural effusion, or pneumothorax. Multiple tiny ground-glass nodules seen in the bilateral lungs. Chest Wall and Osseous Structures: Multilevel thoracic spondylosis. No destructive osseous lesion. Abdomen and Pelvis Findings: Liver and Biliary system: Unremarkable. Spleen: Unremarkable. Adrenal Glands and Kidneys: Normal adrenal glands. Duplicated left renal collecting system. Small kid neys. There is no hydronephrosis. Pancreas and Retroperitoneum: Unremarkable. Aorta and Major Vessels: Aortoiliac vessels are normal in caliber containing moderate calcified ather osclerotic plaque. Bowel, Mesentery and Peritoneal space: Normal appendix. Mild distal colonic diverticulosis. Normal ca liber small and large bowel. No free air or fluid collection. Pelvis: There is a fibroid uterus. Urinary bladder is mildly distended. Punctate nondependent gas in the urinary bladder. There is no pelvic lymphadenopathy. Abdominal wall and Osseous Structures: Intramuscular lipoma within the right iliacus muscle. Grade 2 anterolisthesis at L5-S1. Mild lumbar spondylosis. No destructive osseous lesion. IMPRESSION: 1. Mild distal colonic diverticulosis. No bowel obstruction, fluid collection, or free air. Normal ap pendix. 2. Duplicated left renal collecting system. 3. Mild to moderate centrilobular emphysema. 4. Multiple tiny ground-glass nodules in the bilateral lungs. In the setting of emphysema consider re spiratory bronchiolitis. 5. Sub 5 mm somewhat linear nodule in the left upper lobe, nonspecific on initial exam. Follow-up CT chest for surveillance could be obtained in 1 year for re-evaluation if clinically indicated. 6. At least mild calcified coronary artery disease greatest in the left anterior descending artery.
[2024-09-07 23:00] VITALS: BP 101/45; PULSE 76; RESP 17; TEMP 97.6; O2SAT 95
[2024-09-07] MEDS ORDERED: PANTOPRAZOLE 40 MG/10 ML VIAL INJ IV ONE (23:15)
[2024-09-08] VITALS (9 sets, daily range): BP systolic 86–110; BP diastolic 45–67; PULSE 63–89; RESP 16–18; TEMP 97.6–98.1; O2SAT 92–96
[2024-09-08] MEDS: SULFAMETH-TRIMETH 80/16MG-ML 15 ML in D5W 5% 500 ML IV ONE (00:09)
[2024-09-08] MEDS: SODIUM CHLORIDE 0.9% 1,000 ML IV ONE (00:10)
[2024-09-08 00:48] LABS: Basophils # (auto) 0 10 ^3/uL (0-0.2); Basophils % (auto) 0.4 % (0.0-2.0); Eosinophils # (auto) 0.1 10 ^3/uL (0-0.8); Eosinophils % (auto) 1.3 % (0.0-7.0); Lymphocytes # (auto) 1.5 10 ^3/uL (0.4-5.4); Lymphocytes % (auto) 22.5 % (10.0-50.0); Mean Corpuscular Hemoglobin 28.8 pg (28.0-32.0); Mean Corpuscular Volume 89.8 fL (80.0-100.0); Monocytes # (auto) 0.6 10 ^3/uL (0-1.3); Monocytes % (auto) 8.6 % (0.0-12.0); Neutrophils # (auto) 4.4 10 ^3/uL (1.6-8.6); Neutrophils % (auto) 67.2 % (37.0-80.0); Nucleated Red Blood Cells % 0.1 %; Platelet Count (auto) 311 10^3/uL (140-450); Red Blood Cells 3.12 10^6/uL (4.0-5.20); Red Cell Distribution Width 14.9 % (11.8-14.3); White Blood Cell 6.5 10^3/uL (4.4-10.8)
[2024-09-08 01:24] LABS: Potassium 3.8 mmol/L (3.5-5.1); Sodium 140 mmol/L (136-145)
[2024-09-08 01:25] LABS: Anion Gap 7 (5-15); Calcium 10.2 mg/dL (8.7-10.4); Carbon Dioxide 26 mmol/L (20-31)
[2024-09-08 01:30] LABS: BUN/Creatinine Ratio 29.4 (10.0-20.0)
[2024-09-08 01:33] LABS: Blood Urea Nitrogen 32 mg/dL (9-23); Chloride 107 mmol/L (98-107); Glucose 107 mg/dL (74-106)
[2024-09-08] MEDS ORDERED: ATOR20TA50 PO (03:27)
[2024-09-08] MEDS ORDERED: TRAM50TA2 PO (03:27)
[2024-09-08] MEDS ORDERED: SERT-206 PO (03:27)
[2024-09-08] MEDS ORDERED: AML5T PO (03:27)
[2024-09-08] MEDS ORDERED: BRIV1TAB4 PO (03:27)
[2024-09-08] MEDS ORDERED: GABA-1250 PO (03:27)
[2024-09-08] MEDS ORDERED: MECL12.586 PO (03:27)
[2024-09-08] MEDS ORDERED: ALPR0.5T7 PO (03:27)
[2024-09-08] MEDS ORDERED: PANT40TA2 PO (03:27)
[2024-09-08] MEDS ORDERED: OLME-36 PO (03:27)
[2024-09-08] MEDS ORDERED: FLUT1SPR5 (03:27)
[2024-09-08] MEDS ORDERED: hydrALAZINE HCL 20 MG/ML VL IV PRN (03:45)
[2024-09-08] MEDS ORDERED: cefTRIAXone 1GM/50ML D5W 50 ML IV ONE (03:45)
--- NOTE | 2024-09-08 03:45 | DVHHPRES ---
History of Present Illness Resident Creating Document: OTILIA LEONARD RESIDENT History of Present Illness Patient is a 75-year-old female with a past medical history are described below came to the ED with a chief complaint of coffee-ground emesis and blood in stool. Patient is from [place] and is visiting her daughter, yesterday she had 2 episodes of coffee-ground emesis and reports that today she has had 2 episodes of dark red blackish-colored stools, soft in consistency. Since yesterday patient has been feeling weak and has had episodes of dizziness but no episode of loss of consciousness. Patient reported that a about a month ago she had 1 episode of coffee-ground emesis while she was in [place]. Past medical history: Hypertension, brain tumor s/p surgery, chemo, radiation, stage 3 kidney disease, cholelithiasis, hiatal hernia, depression, GERD, epilepsy Past surgical history: Brain surgery for brain tumor, umbilical hernia repair, laparotomy 1982 for ruptured ectopic Social history: Patient lives with the in [place], admits to vaping but denies smoking cigarettes, alcohol, drug use. Home medications: Amlodipine 2.5 mg, atorvastatin 20 mg, Briviact 50 mg b.i.d., hydrochlorothiazide 25 mg, meclizine 25 mg, naproxen 500 mg, olmesartan 40 mg, omeprazole 40, sertraline 50 mg, tramadol 50 mg Review of Systems Review of Systems Patient reports feeling weak and some dizziness Has mild nausea but no vomiting Denies abdominal pain, diarrhea, fever, chills, shortness of breath, chest pain Allergies: Coded Allergies: Atenolol (Verified Allergy, Severe, 11/12/14) Levofloxacin (Verified Allergy, Unknown, 06/09/21) Medications Current Medications Medications Dose Ordered Sig/Reggie Route Start Time Stop Time Status Last Admin Dose Admin Pantoprazole Sodium 40 mg BID IV 09/08/24 10:00 Ondansetron HCl 4 mg Q6HPRN PRN IV 09/07/24 23:15 Levetiracetam 100 ml @ 400 mls/hr BID IV 09/08/24 10:00 Exam Vital Signs Vital Signs Date Time Temp Pulse Resp B/P (MAP) Pulse Ox O2 Delivery O2 Flow Rate FiO2 09/08/24 01:00 97.6 63 17 110/56 (74) 95 97.6 Exam Physical Examination Constitutional: Alert and oriented to time, place and person and it does not appear to be in any acute distress Gen - mild conjunctival pallor, no icterus, no cyanosis, no clubbing, no LAD, no edema . Skin - Patients skin is warm and dry.. HEENT - normocephalic, atraumatic, moist mucous membranes. Neck - full ROM, no LAD, no JVD Pulmonary - B/L vesicular breath sounds. no crackles , no wheezing, no stridor. cardiovascular - normal S1,S2 heard. no murmurs heard. peripheral pulses radial 2+, pedal 2+. GI - soft abdomen without tenderness to palpation . no hepatospleenomegaly. Bowel sounds normoactive Neurological - Bilateral upper extremity strength 4/5, bilateral lower extremity strength 4/5, no facial droop, normal speech, no tremor, no sensory deficiets. Labs/Xrays Labs Test 09/08/24 00:01 09/07/24 23:57 09/07/24 20:31 09/07/24 18:53 Range/Units Stool Occult Blood Positive Negative Stool Occult Blood Sample #3 Negative White Blood Count 6.5 4.4-10.8 10^3/uL Red Blood Count 3.12 L 4.0-5.20 10^6/uL Hemoglobin 9.0 L 12.2-16.2 g/dL Hematocrit 28.0 L 36.0-46.0 % Mean Corpuscular Volume 89.8 80.0-100.0 fL Mean Corpuscular Hemoglobin 28.8 28.0-32.0 pg Mean Corpuscular Hemoglobin Concent 32.0 32.0-36.0 g/dL Red Cell Distribution Width 14.9 H 11.8-14.3 % Platelet Count 311 140-450 10^3/uL Mean Platelet Volume 8.0 6.9-10.8 fL Neutrophils (%) (Auto) 67.2 37.0-80.0 % Lymphocytes (%) (Auto) 22.5 10.0-50.0 % Monocytes (%) (Auto) 8.6 0.0-12.0 % Eosinophils (%) (Auto) 1.3 0.0-7.0 % Basophils (%) (Auto) 0.4 0.0-2.0 % Neutrophils # (Auto) 4.4 1.6-8.6 10 ^3/uL Lymphocytes # (Auto) 1.5 0.4-5.4 10 ^3/uL Monocytes # (Auto) 0.6 0-1.3 10 ^3/uL Eosinophils # (Auto) 0.1 0-0.8 10 ^3/uL Basophils # (Auto) 0 0-0.2 10 ^3/uL Nucleated Red Blood Cells 0.1 % Sodium Level 140 136-145 mmol/L Potassium Level 3.8 3.5-5.1 mmol/L Chloride Level 107 98-107 mmol/L Carbon Dioxide Level 26 20-31 mmol/L Anion Gap 7 5-15 Blood Urea Nitrogen 32 H 9-23 mg/dL Creatinine 1.09 H 0.550-1.02 mg/dL Glomerular Filtration Rate Calc 54 >90 mL/min BUN/Creatinine Ratio 29.4 H 10.0-20.0 Serum Glucose 107 H 74-106 mg/dL Calcium Level 10.2 8.7-10.4 mg/dL Urine Color Yellow Yellow Urine Clarity Turbid H Clear Urine pH 5.5 5.0-9.0 Urine Specific [place] 1.021 1.001-1.035 Urine Protein Trace H Negative Urine Ketones Trace Negative Urine Blood 1+ H Negative /uL Urine Nitrite 2+ H Negative Urine Bilirubin Negative Negative Urine Urobilinogen Normal Negative mg/dL Urine Leukocyte Esterase 3+ Negative /uL Urine RBC 3 0 - 4 /hpf Urine WBC 71 0 - 5 /hpf Urine WBC Clumps Present None Seen /hpf Urine Squamous Epithelial Cells Few <5 /hpf Urine Bacteria Many H None Seen /hpf Urine Mucus Moderate None Seen Urine Glucose Normal Normal mg/dL Lactic Acid Level 2.1 *H 0.4-2.0 mmol/L Test 09/07/24 18:32 09/07/24 16:42 Range/Units Troponin I High Sensitivity < 3 L </=34 ng/L Total Bilirubin 0.2 0.2-1.0 mg/dL Aspartate Amino Transferase (AST) 11 L 13-40 U/L Alanine Aminotransferase (ALT) 17 7-40 U/L Alkaline Phosphatase 67 46-116 U/L Total Protein 6.0 5.7-8.2 g/dL Albumin 4.2 3.2-4.8 g/dL Lipase 34 12-53 U/L Assessment/Plan Assessment/Plan Assessment and plan # Acute GI bleed likely upper GI # ? Peptic ulcer disease # ? Acute gastritis # Lactic acidosis - stool occult blood positive - hemoglobin stable at 9 gram/deciliter - elevated BUN/creatinine ratio - Protonix 80 mg IV once given - patient NPO - Protonix 40 mg b.i.d. - on NS @ 100 mL/hour - Zofran p.r.n. - GI consult pending - monitor H&H # MG on CKD stage 3 likely hemodynamically mediated d/t VMN - serum creatinine 1.13-->1.09 - elevated BUN/creatinine ratio - on IV fluid - monitor BMP # Urinary tract infection likely acute cystitis - UA shows elevated nitrite, leukocyte esterase, urine WBC - on IV fluids - ceftriaxone 1 g IV daily # H/O epilepsy - at home patient on Briviact 50mg bid - as the patient is NPO, started on Keppra 500 mg IV b.i.d. # H/o hypertension - oral home medications held - on hydralazine prn Goals of care discussed with the patient and daughter for over 25 minutes. Full code Plan discussed with Dr. Jack Plan discussed with: Patient My Orders Orders - OTILIA LEONARD RESIDENT Procedure Category Date Status Time Admit ADMIT 09/07/24 Transmitted 23:04 Stat Ekg For Chest [facility] 09/07/24 In Process Pain 23:04 Notify Of Changes [facility] 09/07/24 In Process From Base 23:04 Cath Lab Nurse For [facility] 09/07/24 In Process 24 Hours 23:04 Emergency Dysrhythmia [facility] 09/07/24 In Process Protocol 23:04 Stool Occult Blood LAB 09/07/24 In Process 23:07 Stool Wbc LAB 09/07/24 In Process 23:07 Pantoprazole PHA 09/08/24 In Process (Protonix) 10:00 *Consult Dr. Bach CONS 09/07/24 Transmitted [place] 23:07 Npo (Nothing By DIET 09/08/24 Transmitted Mouth) Diet Breakfast Ondansetron Hcl PHA 09/07/24 In Process (Zofran) 23:15 Levetiracetam 500 PHA 09/08/24 In Process Mg/100ml (Levetiraceta 10:00 Sodium Chloride 0.9% PHA 12/27/24 In Process 23:15 Date of Service: Sep 07, 2024 Billing Provider: RICCARDO JACK MD Common Visit Codes: 14303-LOFMIKP INP/OBS CARE (HIGH) Secondary Visit Codes: 57681-MNADROBV CARE PLAN 30 MINUTES OTILIA LEONARD RESIDENT Sep 08, 2024 03:45 RICCARDO JACK MD Sep 08, 2024 10:43
[2024-09-08] MEDS: SUCRALFATE 1 GM/10 ML ORAL SUSP GT ONE (09:00)
[2024-09-08 09:42] LABS: Calcium 9.5 mg/dL (8.7-10.4); Chloride 106 mmol/L (98-107); Potassium 3.1 mmol/L (3.5-5.1); Sodium 141 mmol/L (136-145)
[2024-09-08 09:43] LABS: Anion Gap 9 (5-15); Carbon Dioxide 26 mmol/L (20-31)
[2024-09-08 09:48] LABS: BUN/Creatinine Ratio 22.1 (10.0-20.0); Glucose 105 mg/dL (74-106)
[2024-09-08 09:53] LABS: Blood Urea Nitrogen 25 mg/dL (9-23)
[2024-09-08 09:58] LABS: Hemoglobin 8.1 g/dL (12.2-16.2)
[2024-09-08 10:00] LABS: Hematocrit 25.3 % (36.0-46.0)
[2024-09-08] MEDS: levETIRAcetam 500 mg/100ml 100 ML IV SCH (10:00)
--- NOTE | 2024-09-08 10:09 | DVH ---
CHEST RADIOGRAPH Indication: RULE OUT pneumothorax/mediadtenitis Technique: Frontal and lateral view of the chest was obtained Comparison: CHEST TWO VIEWS ROUTINE on DOS: 07/08/20 FINDINGS: Lines and Tubes: None Lungs: Left basilar subsegmental atelectasis. Pleura: No effusion. No pneumothorax. Cardiomediastinal contours: Lucency at the right heart border. Moderate hiatal hernia. Bones: Unremarkable IMPRESSION: Subtle lucency at the right heart border may represent small volume pneumomediastinum versus artifact . No appreciable pneumothorax. Moderate hiatal hernia. Left basilar subsegmental atelectasis.
[2024-09-08 10:57] LABS: Blood Alcohol < 3.0 mg/dL (<10); Magnesium 1.5 mg/dL (1.6-2.6)
--- NOTE | 2024-09-08 11:11 | DVHPNRES ---
Progress Note Date Seen: Sep 08, 2024 Resident Creating Document: TOM DONALDSON RESIDENT Medical Necessity Reason Pt with a Central, PICC or Fol: No Subjective Review of Systems Patient is 73 years old female with past medical history of hypertension, CKD stage 3, epilepsy, depression, history of brain tumor, status post brain surgery, status post chemo and radiotherapy, cholelithiasis, hiatal hernia visiting from [place] came with a complaint of ground-glass emesis. As per patient patient has been having ground-glass emesis started on day September 05. Patient reported she has Dick and she was feeling acid reflux and put her fingers into the mouth to throw up to get it with the gases but she started having ground-glass emesis after that. Patient also reported seeing blood in her stool, having black tarry colored stool. Patient reported that she 1st time had ground-glass Mrs. on August 24. Patient also reports some dizziness following emesis. Patient denied any chest pain, shortness of breath, abdominal pain, dysuria, acute joint pain or swelling, sick contact. Initial lab workup revealed anemia with a hemoglobin 9.1, serum creatinine 1.13, BUN 36, magnesemia 1.5, elevated lactic acid 2.8, FOBT positive. Bilirubin/AST/ALT/alkaline phosphatase within normal limit. Urinalysis positive for UTI with nitrite 2+, leukocyte esterase 3+, WBC 71, RBC 3, bacteria many.UDS positive for benzodiazepine. CT abdomen revealed-Mild distal colonic diverticulosis. No bowel obstruction, fluid collection, or free air. Normal appendix. Duplicated left renal collecting system. Mild to moderate centrilobular emphysema. Multiple tiny ground-glass nodules in the bilateral lungs. In the setting of emphysema consider respiratory bronchiolitis. Sub 5 mm somewhat linear nodule in the left upper lobe, nonspecific on initial exam. Follow-up CT chest for surveillance could be obtained in 1 year for re- evaluation if clinically indicated. At least mild calcified coronary artery disease greatest in the left anterior descending artery. CXR- Subtle lucency at the right heart border may represent small volume pneumomediastinum versus artifact. No appreciable pneumothorax. Moderate hiatal hernia. Left basilar subsegmental atelectasis. Past medical history: Hypertension, brain tumor s/p surgery, chemo, radiation, stage 3 kidney disease, cholelithiasis, hiatal hernia, depression, GERD, epilepsy Past surgical history: Brain surgery for brain tumor, umbilical hernia repair, laparotomy 1982 for ruptured ectopic Social history: Patient lives with the in [place], admits to vaping but denies smoking cigarettes, alcohol, drug use. Home medications: Amlodipine 2.5 mg, atorvastatin 20 mg, Briviact 50 mg b.i.d., hydrochlorothiazide 25 mg, meclizine 25 mg, naproxen 500 mg, olmesartan 40 mg, omeprazole 40, sertraline 50 mg, tramadol 50 mg Allergy- atenolol, levofloxacin Patient was seen today at the bedside. Cardiovascular- deny acute chest pain or shortness of breath or cough or palpitation Respiratory- denies cough or short of breath or wheezing Gastrointestinal- denies any rectal bleeding, nausea or vomiting Musculoskeletal-denies acute joint swelling or tenderness or redness Neurological- denies acute dysarthria, dysphagia, change in vision Psychiatry- denies depression or SI or HI Skin- denies acute rash or purpura Patient was seen today for clinical evaluation. Labs and chart reviewed. Patient reported feeling okay. Denied acute abdominal pain. Patient was seen by Gastroenterology. As per Gastroenterology probable endoscopy on Tuesday or Tuesday. ORDERED STAT H&H Objective vital signs Vital Sign Date Time Temp Pulse Resp B/P (MAP) Pulse Ox O2 Delivery O2 Flow Rate FiO2 09/08/24 09:00 98.1 82 18 105/48 (67) 94 98.1 09/08/24 03:52 Room Air* 0 21 medications Current Medications Medications Dose Ordered Sig/Reggie Route Start Time Stop Time Status Last Admin Dose Admin Pantoprazole Sodium 40 mg BID IV 09/08/24 10:00 Ondansetron HCl 4 mg Q6HPRN PRN IV 09/07/24 23:15 Levetiracetam 100 ml @ 400 mls/hr BID IV 09/08/24 10:00 Hydralazine HCl 10 mg Q6HP PRN IV 09/08/24 03:45 Sucralfate 1 gm QID@0600,1130,1700,2200 GT 09/08/24 17:00 Examination General examination- pale conjunctiva HEENT- PEERLA, no acute nasal discharge Cardiovascular- S1-S2 audible, rate and rhythm regular, no murmur Respiratory- CTAB, no wheeze or rhonchi Gastrointestinal-nontender, bowel sound+. Nondistended Musculoskeletal-no acute joint swelling or tenderness or redness# Lower extremity- no leg edema Neurological- cranial nerves intact, no acute dysarthria or dysphagia Psychiatry- denies depression or SI or HI Skin- fragile skin laboratory and microbiology Laboratory Tests 09/08/24 09:10 09/07/24 23:57 Test 09/08/24 09:10 Range/Units Serum Glucose 105 74-106 mg/dL Problem List/Assessment/Plan Problem List/Assessment/Plan # acute GI bleeding-gastrointestinal hemorrhage- recurrent hematemesis and melena # moderate anemia #UTI #Lactic acidosis #Hypomagnesemia #Colonic diverticulosis #Bronchiolitis #Sub 5 mm somewhat linear nodule in the left upper lobe #Left basilar subsegmental atelectasis. #mild calcified coronary artery disease greatest in the left anterior descending artery. #hypertension, #CKD stage 3, #epilepsy, #depression, #history of brain tumor, status post brain surgery, status post chemo and radiotherapy, #cholelithiasis, #hiatal hernia #UDS positive for benzodiazepine. Pending hepatic panel -CT abdomen revealed-Mild distal colonic diverticulosis. No bowel obstruction, fluid collection, or free air. Normal appendix. Duplicated left renal collecting system. Mild to moderate centrilobular emphysema. Multiple tiny ground-glass nodules in the bilateral lungs. In the setting of emphysema consider respiratory bronchiolitis. Sub 5 mm somewhat linear nodule in the left upper lobe, nonspecific on initial exam. Follow-up CT chest for surveillance could be obtained in 1 year for re-evaluation if clinically indicated. At -CXR- Subtle lucency at the right heart border may represent small volume pneumomediastinum versus artifact. No appreciable pneumothorax. Moderate hiatal hernia. Left basilar subsegmental atelectasis. Continue normal saline 100 mL/hour Continue levetiracetam as prescribed Pantoprazole 40 mg IV b.i.d. Sucralfate suspension 1 g p.o. q.6h Ceftriaxone 1 g IV daily Goals of care/advance care planning; FULL CODE; discussed with the patient >15 minutes PUD prophylaxis: Pantoprazole DVT prophylaxis: Compression device Plan discussed with Dr. Jack, nursing staff, patient Total time spent on patient evaluation, chart review, assessment and plan, discussion discussion >30 minutes Plan discussed with: Patient Plan discussed with: Patient, Other (RN) My Orders My Orders Orders - TOM DONALDSON Procedure Category Date Status Time Hemoglobin A1c LAB 09/08/24 In Process 08:02 Drug Screen LAB 09/08/24 Logged 08:02 Chest Two Views XY 09/08/24 Resulted Routine 08:57 Sucralfate Susp PHA 09/08/24 In Process (Carafate Susp) 17:00 Date of Service: Sep 08, 2024 Billing Provider: RICCARDO JACK MD Common Visit Codes: [id number] INP/OBS CARE(MOD) TOM DONALDSON Sep 08, 2024 11:11 RICCARDO JACK MD Sep 09, 2024 10:23
[2024-09-08 11:48] LABS: Alanine Aminotransferase 13 U/L (7-40); Alkaline Phosphatase 60 U/L (46-116)
[2024-09-08] MEDS: PANTOPRAZOLE 40 MG/10 ML VIAL INJ IV SCH (11:52)
[2024-09-08] MEDS: SUCRALFATE 1 GM/10 ML ORAL SUSP PO SCH (11:56)
[2024-09-08 12:02] LABS: Aspartate Aminotransferase 13 U/L (13-40); Bilirubin, Direct < 0.1 mg/dL (<0.3); Bilirubin, Total 0.2 mg/dL (0.2-1.0)
[2024-09-08] MEDS: ONDANSETRON HCL 4 MG/2 ML VIAL IV PRN (12:07)
[2024-09-08] MEDS: MAGNESIUM SULFATE 1GM/100ML 100 ML IV SCH (12:10)
[2024-09-08 12:17] LABS: INR 1.05 (0.9-1.15); Prothrombin Time 11.1 sec (9.3-11.8)
[2024-09-08] MEDS: ACETAMINOPHEN 325 MG TAB PO PRN (12:23)
[2024-09-08 13:48] LABS: Benzodiazephine Screen, Urine Pos (NEGATIVE)
[2024-09-08 13:52] LABS: Amphetamine Screen, Urine Neg (NEGATIVE); Barbiturate Scree,Urine Neg (NEGATIVE); Cannabinoid Screen, Urine Neg (NEGATIVE); Cocaine Screen, Urine Neg (NEGATIVE); Opiate Scree,Urine Neg (NEGATIVE); Phencyclidine Screen, Urine Neg (NEGATIVE)
[2024-09-08] MEDS: SODIUM CHLORIDE 0.9% 1,000 ML IV SCH (16:21)
[2024-09-08] MEDS: MAGNESIUM SULFATE 1GM/100ML 100 ML IV ONE (16:22)
[2024-09-08 16:41] LABS: Hematocrit 24.3 % (36.0-46.0); Hemoglobin 7.9 g/dL (12.2-16.2)
[2024-09-08] MEDS ORDERED: SUCRALFATE 1 GM/10 ML ORAL SUSP GT SCH (17:00)
[2024-09-08] MEDS: POTASSIUM CHLORIDE 40 MEQ, LIDOCAINE 1% (LOCAL ANESTH.) 4 ML in SODIUM CHL 0.9% 250 ML IV ONE (18:44)
--- NOTE | 2024-09-08 21:26 | DVHINCON2 ---
Date of service: Sep 08, [address] Rodriguez Reason for Consultation Upper GI bleed History of Present Illness 73 y.o female presents to the ED for a chief complaint of nausea and vomiting multiple events of vomiting coffee-ground blood s/p eating a sandwich yesterday associated with black stool, dizziness and SOB on exertion x two days. Patient is feeling weaker than usual, states symptoms are all new onset with no previous respiratory issues or oxygen use at home. Patient denies any use of aspirin NSAIDs smoking or alcohol. She had no prior episode of upper GI bleed. Her hemoglobin was 9.0 today Patient denies any nausea now, fever, chills or abdominal pain. SPO2 read 97% RA upon ED arrival. Patient was seen at bedside and was feeling clinically better. She was requesting a diet to eat. Past Medical History Past medical history: Hypertension, brain tumor s/p surgery, chemo, radiation, stage 3 kidney disease, cholelithiasis, hiatal hernia, depression, GERD, epilepsy Past Surgical History Past surgical history: Brain surgery for brain tumor, umbilical hernia repair, laparotomy 1983 for ruptured ectopic Family History: Patient reports no known family medical history. Allergies: Coded Allergies: Atenolol (Verified Allergy, Severe, 11/12/14) Levofloxacin (Verified Allergy, Unknown, 06/09/21) Home Meds Reported Medications Alprazolam (Alprazolam) 0.5 Mg Tab, 0.5 MG PO BID, TAB 09/08/24 Brivaracetam (Briviact) 50 Mg Tab, 50 MG PO BID, TAB 09/08/24 Sertraline Hcl (Sertraline Hcl) 50 Mg Tab, 50 MG PO DAILY, TAB 09/08/24 Meclizine Hcl (Meclizine Hcl) 12.5 Mg Tab, 25 MG PO TIDPRN PRN for DI ZZINESS/NAUSEA, TAB 09/08/24 Amlodipine Besylate (NORVASC TABLET) 5 Mg Tb, 2.5 MG PO DAILY, TAB 09/08/24 Atorvastatin Calcium (ATORVASTATIN CALCIUM) 20 Mg Tab, 20 MG PO HS, TAB 09/08/24 Tramadol Hcl (Tramadol Hcl) 50 Mg Tab, 50 MG PO Q6HPRN PRN for PAIN SCALE 7 THRU 10, TAB 09/08/24 Fluticasone Propionate (Nasal) (Flonase Allergy Relief) 50 Mcg/Act Spr, 1 SPR NA DAILY, SPRAY 09/08/24 Olmesartan Medoxomil-Hydrochlo (Olmesartan Medoxomil/Hydr 40-25 mg) 1 Tab Tab, 1 TAB PO HS, TAB 09/08/24 Pantoprazole Sodium Sesquihydr (Protonix) 40 Mg Tab, 40 MG PO BID, #30 TAB 09/08/24 Gabapentin (Gabapentin) 300 Mg Cap, 300 MG PO BID, CAP 09/08/24 Current Medications Current Medications Medications (Trade) Dose Ordered Sig/Reggie Route PRN Reason Start Time Stop Time Status Last Admin Pantoprazole Sodium (Protonix) 40 mg BID IV 09/08/24 10:00 09/08/24 11:52 Ondansetron HCl (Zofran) 4 mg Q6HPRN PRN IV NAUSEA / VOMITING 09/07/24 23:15 09/08/24 12:07 Levetiracetam 100 ml @ 400 mls/hr BID IV 09/08/24 10:00 Ceftriaxone Sodium 50 ml @ 100 mls/hr DAILY@09 IV 09/09/24 09:00 09/08/24 09:00 DC Hydralazine HCl (Apresoline Injection) 10 mg Q6HP PRN IV SBP>150 09/08/24 03:45 Sucralfate (Carafate Susp) 1 gm QID@0600,1130,1700,2200 GT 09/08/24 17:00 09/08/24 11:21 DC Sucralfate (Carafate Susp) 1 gm QID@0600,1130,1700,2200 PO 09/08/24 11:30 09/08/24 18:45 Ceftriaxone Sodium 50 ml @ 100 mls/hr DAILY@09 IV 09/09/24 09:00 Magnesium Sulfate/ Dextrose 100 ml @ 100 mls/hr Q1HR IV 09/08/24 12:00 09/08/24 13:59 DC 09/08/24 16:17 Sodium Chloride 1,000 ml @ 100 mls/hr Q10H IV 09/08/24 12:00 09/08/24 16:21 Morphine Sulfate 1 mg Q6HP PRN IV SEVERE PAIN (7-10 PAIN SCALE) 09/08/24 12:00 Acetaminophen (Tylenol Tablet) 650 mg Q6HP PRN PO MODERATE PAIN (4-6 PAIN SCALE) 09/08/24 12:00 09/08/24 12:23 Vital Signs Vital Signs Date Time Temp Pulse Resp B/P (MAP) Pulse Ox O2 Delivery O2 Flow Rate FiO2 09/08/24 20:42 98.1 75 16 86/52 (63) 93 98.1 09/08/24 08:00 Room Air* 0 21 Physical Exam WDWN female Alert and oriented x 3 NAD Gen - mild pallor, no icterus, no cyanosis, no clubbing, no LAD, no edema . Skin - Patients skin is warm and dry.. HEENT - normocephalic, atraumatic, moist mucous membranes. Pulmonary - B/L vesicular breath sounds. no crackles , no wheezing, no stridor. cardiovascular - normal S1,S2 heard. no murmurs heard. GI - soft abdomen without tenderness to palpation . no hepatospleenomegaly. Bowel sounds normoactive Neurological - Non focal ,no facial droop, normal speech, no tremor, no sensory deficiets. Labs/Diagnostic Data Labs Test 09/08/24 16:15 09/08/24 09:16 09/08/24 09:10 09/08/24 00:01 Range/Units Hemoglobin 7.9 L 12.2-16.2 g/dL Hematocrit 24.3 L 36.0-46.0 % Lactic Acid Level 1.1 0.4-2.0 mmol/L Prothrombin Time 11.1 9.3-11.8 sec Prothrombin Time INR 1.05 0.9-1.15 Sodium Level 141 136-145 mmol/L Potassium Level 3.1 L 3.5-5.1 mmol/L Chloride Level 106 98-107 mmol/L Carbon Dioxide Level 26 20-31 mmol/L Anion Gap 9 5-15 Blood Urea Nitrogen 25 H 9-23 mg/dL Creatinine 1.13 H 0.550-1.02 mg/dL Glomerular Filtration Rate Calc 52 >90 mL/min BUN/Creatinine Ratio 22.1 H 10.0-20.0 Serum Glucose 105 74-106 mg/dL Hemoglobin A1c 5.8 H <5.7 % A1C Calcium Level 9.5 8.7-10.4 mg/dL Magnesium Level 1.5 L 1.6-2.6 mg/dL Total Bilirubin 0.2 0.2-1.0 mg/dL Direct Bilirubin < 0.1 <0.3 mg/dL Aspartate Amino Transferase (AST) 13 13-40 U/L Alanine Aminotransferase (ALT) 13 7-40 U/L Alkaline Phosphatase 60 46-116 U/L B-Type Natriuretic Peptide 43.18 0-100 pg/mL Total Protein 6.0 5.7-8.2 g/dL Albumin 4.0 3.2-4.8 g/dL Thyroid Stimulating Hormone (TSH) 2.75 0.55-4.78 uIU/mL Plasma/Serum Blood Alcohol < 3.0 <10 mg/dL Stool Occult Blood Positive Negative Stool Occult Blood Sample #3 Negative Test 09/07/24 23:57 09/07/24 20:31 09/07/24 18:32 09/07/24 16:42 Range/Units White Blood Count 6.5 4.4-10.8 10^3/uL Red Blood Count 3.12 L 4.0-5.20 10^6/uL Mean Corpuscular Volume 89.8 80.0-100.0 fL Mean Corpuscular Hemoglobin 28.8 28.0-32.0 pg Mean Corpuscular Hemoglobin Concent 32.0 32.0-36.0 g/dL Red Cell Distribution Width 14.9 H 11.8-14.3 % Platelet Count 311 140-450 10^3/uL Mean Platelet Volume 8.0 6.9-10.8 fL Neutrophils (%) (Auto) 67.2 37.0-80.0 % Lymphocytes (%) (Auto) 22.5 10.0-50.0 % Monocytes (%) (Auto) 8.6 0.0-12.0 % Eosinophils (%) (Auto) 1.3 0.0-7.0 % Basophils (%) (Auto) 0.4 0.0-2.0 % Neutrophils # (Auto) 4.4 1.6-8.6 10 ^3/uL Lymphocytes # (Auto) 1.5 0.4-5.4 10 ^3/uL Monocytes # (Auto) 0.6 0-1.3 10 ^3/uL Eosinophils # (Auto) 0.1 0-0.8 10 ^3/uL Basophils # (Auto) 0 0-0.2 10 ^3/uL Nucleated Red Blood Cells 0.1 % Urine Color Yellow Yellow Urine Clarity Turbid H Clear Urine pH 5.5 5.0-9.0 Urine Specific [place] 1.021 1.001-1.035 Urine Protein Trace H Negative Urine Ketones Trace Negative Urine Blood 1+ H Negative /uL Urine Nitrite 2+ H Negative Urine Bilirubin Negative Negative Urine Urobilinogen Normal Negative mg/dL Urine Leukocyte Esterase 3+ Negative /uL Urine RBC 3 0 - 4 /hpf Urine WBC 71 0 - 5 /hpf Urine WBC Clumps Present None Seen /hpf Urine Squamous Epithelial Cells Few <5 /hpf Urine Bacteria Many H None Seen /hpf Urine Mucus Moderate None Seen Urine Glucose Normal Normal mg/dL Urine Opiates Screen Neg NEGATIVE Urine Fentanyl Screen Neg NEGATIVE Urine Barbiturates Screen Neg NEGATIVE Urine Phencyclidine Screen Neg NEGATIVE Urine Amphetamines Screen Neg NEGATIVE Urine Benzodiazepines Screen Pos NEGATIVE Urine Cocaine Screen Neg NEGATIVE Urine Cannabinoids Screen Neg NEGATIVE Troponin I High Sensitivity < 3 L </=34 ng/L Lipase 34 12-53 U/L CT CHEST ABD PELVIS IMPRESSION: 1. Mild distal colonic diverticulosis. No bowel obstruction, fluid collection, or free air. Normal appendix. 2. Duplicated left renal collecting system. 3. Mild to moderate centrilobular emphysema. 4. Multiple tiny ground-glass nodules in the bilateral lungs. In the setting of emphysema consider respiratory bronchiolitis. 5. Sub 5 mm somewhat linear nodule in the left upper lobe, nonspecific on initial exam. Follow-up CT chest for surveillance could be obtained in 1 year for re-evaluation if clinically indicated. 6. At least mild calcified coronary artery disease greatest in the left anterior descending artery. Problems(with codes): (1) Positive occult stool blood test (2) Coffee ground emesis (3) Nausea and vomiting (4) Ahjds-sk-rshykad kidney injury (5) Elevated lactic acid level (6) Anemia (7) Urinary tract infection (8) Constipation (9) Chest pain, atypical (10) GERD (gastroesophageal reflux disease) Plan/Recommendation Plan Clear liquid diet advance to full liquid IV Protonix 40 mg q.12 hours Carafate suspension 1 g p.o. 4 times a day Monitor serial H&H transfuse if hemoglobin is less than seven Hold blood thinners aspirin and NSAIDs I will arrange endoscopy in the next 24-48 hours pending medical stabilization and scheduling availability Once again thank you for allowing me to participate in the care of this patient Continue supportive care Plan discussed with: Patient, Other (Dr Mendiola) WOO JUAREZ MD Sep 08, 2024 21:26
[2024-09-09] VITALS (11 sets, daily range): BP systolic 74–104; BP diastolic 35–63; PULSE 64–84; RESP 14–18; TEMP 97.6–98.2; O2SAT 91–98
[2024-09-09 06:07] LABS: Basophils # (auto) 0 10 ^3/uL (0-0.2); Basophils % (auto) 0.7 % (0.0-2.0); Eosinophils # (auto) 0.1 10 ^3/uL (0-0.8); Eosinophils % (auto) 1.5 % (0.0-7.0); Hematocrit 21.8 % (36.0-46.0); Hemoglobin 7.1 g/dL (12.2-16.2); Lymphocytes # (auto) 0.8 10 ^3/uL (0.4-5.4); Lymphocytes % (auto) 23.7 % (10.0-50.0); Mean Corpuscular Hemoglobin 29.4 pg (28.0-32.0); Mean Corpuscular Hgb Conc. 32.8 g/dL (32.0-36.0); Mean Corpuscular Volume 89.7 fL (80.0-100.0); Monocytes # (auto) 0.4 10 ^3/uL (0-1.3); Monocytes % (auto) 11.5 % (0.0-12.0); Neutrophils # (auto) 2.2 10 ^3/uL (1.6-8.6); Neutrophils % (auto) 62.6 % (37.0-80.0); Nucleated Red Blood Cells % 0.1 %; Platelet Count (auto) 241 10^3/uL (140-450); Red Blood Cells 2.43 10^6/uL (4.0-5.20); Red Cell Distribution Width 14.7 % (11.8-14.3); White Blood Cell 3.6 10^3/uL (4.4-10.8)
[2024-09-09 06:22] LABS: Anion Gap 5 (5-15); Calcium 8.8 mg/dL (8.7-10.4); Carbon Dioxide 25 mmol/L (20-31); Potassium 3.8 mmol/L (3.5-5.1); Sodium 143 mmol/L (136-145)
[2024-09-09 06:27] LABS: BUN/Creatinine Ratio 12.8 (10.0-20.0); Blood Urea Nitrogen 16 mg/dL (9-23); Glucose 96 mg/dL (74-106)
[2024-09-09 06:28] LABS: Magnesium 2.3 mg/dL (1.6-2.6)
[2024-09-09 06:32] LABS: Chloride 113 mmol/L (98-107)
[2024-09-09] MEDS ORDERED: cefTRIAXone 1GM/50ML D5W 50 ML IV SCH (09:00)
[2024-09-09] MEDS: cefTRIAXone 1GM/50ML D5W 50 ML IV SCH (09:07)
[2024-09-09] MEDS: SODIUM CHLORIDE 0.9% 500 ML IV ONE (09:22)
--- NOTE | 2024-09-09 13:44 | DVHPN2 ---
Progress Note - Dictate Date Seen: Sep 09, 2024 Medical Necessity Reason Pt with a Central, PICC or Fol: No Subjective No new complaints, patient resting comfortably Patient was hypotensive this morning requiring fluid bolus No active GI bleeding reported; no further episodes of nausea vomiting Patient is tolerating a full liquid diet, UA is positive ; patient with mild lactic acidosis, and patient is on IV Rocephin Hemoglobin did drift down to 7.1 vital signs Vital Sign Date Time Temp Pulse Resp B/P (MAP) Pulse Ox O2 Delivery O2 Flow Rate FiO2 09/09/24 13:00 97.6 80 18 95/63 (74) 92 97.6 09/08/24 20:00 Room Air* 0 21 Total Intake and Output 09/08/24 09/08/24 09/09/24 15:00 23:00 07:00 Intake Total 100 ml 850 ml 480 ml Balance 100 ml 850 ml 480 ml medications Current Medications Medications Dose Ordered Sig/Reggie Route Start Time Stop Time Status Last Admin Dose Admin Pantoprazole Sodium 40 mg BID IV 09/08/24 10:00 09/09/24 09:07 40 MG Ondansetron HCl 4 mg Q6HPRN PRN IV 09/07/24 23:15 09/08/24 12:07 4 MG Levetiracetam 100 ml @ 400 mls/hr BID IV 09/08/24 10:00 09/08/24 21:54 400 MLS/HR Hydralazine HCl 10 mg Q6HP PRN IV 09/08/24 03:45 Sucralfate 1 gm QID@0600,1130,1700,2200 PO 09/08/24 11:30 09/09/24 11:46 1 GM Ceftriaxone Sodium 50 ml @ 100 mls/hr DAILY@09 IV 09/09/24 09:00 09/09/24 09:07 100 MLS/HR Sodium Chloride 1,000 ml @ 100 mls/hr Q10H IV 09/08/24 12:00 09/09/24 09:21 100 MLS/HR Morphine Sulfate 1 mg Q6HP PRN IV 09/08/24 12:00 Acetaminophen 650 mg Q6HP PRN PO 09/08/24 12:00 09/08/24 12:23 650 MG Patient Own Medication 50 mg BID PO 09/09/24 22:00 UNV objective WDWN female Alert and oriented x 3 NAD Gen - mild pallor, no icterus, no cyanosis, no clubbing, no LAD, no edema . HEENT - normocephalic, atraumatic, moist mucous membranes. Pulmonary - B/L vesicular breath sounds. no crackles , no wheezing, no stridor. cardiovascular - normal S1,S2 heard. no murmurs heard. GI - soft abdomen without tenderness to palpation . no hepatosplenomegaly. Bowel sounds normoactive Neurological - Non focal ,no facial droop, normal speech, no tremor, no sensory deficiets. laboratory and microbiology Laboratory Tests 09/09/24 05:10 Test 09/09/24 05:10 Range/Units Serum Glucose 96 74-106 mg/dL Problems(with codes): (1) Chest pain, atypical (2) Coffee ground emesis (3) Positive occult stool blood test (4) Nausea and vomiting (5) GERD (gastroesophageal reflux disease) (6) Urinary tract infection (7) Anemia (8) Elevated lactic acid level (9) [id number]-[id number] kidney injury Prognosis Plan Transfused 1 unit PRBC Continue IV Protonix 40 mg q.12 hours Get urine culture so we can adjust her antibiotic coverage H&H every 12 hours and repeat lactic acid in a.m. NPO after midnight for EGD on 09/10/24 am Plan discussed with: Other (Nurse) WOO JUAREZ MD Sep 09, 2024 13:44
--- NOTE | 2024-09-09 15:54 | DVHPNRES ---
Progress Note Date Seen: Sep 09, 2024 Resident Creating Document: NICOLE RAMIREZ RESIDENT Medical Necessity Reason Pt with a Central, PICC or Fol: No Subjective Review of Systems Patient is 73 years old female with past medical history of hypertension, CKD stage 3, epilepsy, depression, history of brain tumor, status post brain surgery, status post chemo and radiotherapy, cholelithiasis, hiatal hernia visiting from [place] came with a complaint of ground-glass emesis. As per patient patient has been having ground-glass emesis started on day September 05. Patient reported she has Dick and she was feeling acid reflux and put her fingers into the mouth to throw up to get it with the gases but she started having ground-glass emesis after that. Patient also reported seeing blood in her stool, having black tarry colored stool. Patient reported that she 1st time had ground-glass Mrs. on August 24. Patient also reports some dizziness following emesis. Patient denied any chest pain, shortness of breath, abdominal pain, dysuria, acute joint pain or swelling, sick contact. Initial lab workup revealed anemia with a hemoglobin 9.1, serum creatinine 1.13, BUN 36, magnesemia 1.5, elevated lactic acid 2.8, FOBT positive. Bilirubin/AST/ALT/alkaline phosphatase within normal limit. Urinalysis positive for UTI with nitrite 2+, leukocyte esterase 3+, WBC 71, RBC 3, bacteria many.UDS positive for benzodiazepine. CT abdomen revealed-Mild distal colonic diverticulosis. No bowel obstruction, fluid collection, or free air. Normal appendix. Duplicated left renal collecting system. Mild to moderate centrilobular emphysema. Multiple tiny ground-glass nodules in the bilateral lungs. In the setting of emphysema consider respiratory bronchiolitis. Sub 5 mm somewhat linear nodule in the left upper lobe, nonspecific on initial exam. Follow-up CT chest for surveillance could be obtained in 1 year for re- evaluation if clinically indicated. At least mild calcified coronary artery disease greatest in the left anterior descending artery. CXR- Subtle lucency at the right heart border may represent small volume pneumomediastinum versus artifact. No appreciable pneumothorax. Moderate hiatal hernia. Left basilar subsegmental atelectasis. Past medical history: Hypertension, brain tumor s/p surgery, chemo, radiation, stage 3 kidney disease, cholelithiasis, hiatal hernia, depression, GERD, epilepsy Past surgical history: Brain surgery for brain tumor, umbilical hernia repair, laparotomy 1982 for ruptured ectopic Social history: Patient lives with the in [place], admits to vaping but denies smoking cigarettes, alcohol, drug use. Home medications: Amlodipine 2.5 mg, atorvastatin 20 mg, Briviact 50 mg b.i.d., hydrochlorothiazide 25 mg, meclizine 25 mg, naproxen 500 mg, olmesartan 40 mg, omeprazole 40, sertraline 50 mg, tramadol 50 mg Allergy- atenolol, levofloxacin Patient was seen today at the bedside. Cardiovascular- deny acute chest pain or shortness of breath or cough or palpitation Respiratory- denies cough or short of breath or wheezing Gastrointestinal- denies any rectal bleeding, nausea or vomiting Musculoskeletal-denies acute joint swelling or tenderness or redness Neurological- denies acute dysarthria, dysphagia, change in vision Psychiatry- denies depression or SI or HI Skin- denies acute rash or purpura Seen and examined at bedside, patient's blood pressure was lower side, given bolus of 500 mL normal saline. Patient's hemoglobin was 7.1 and on unit packed red blood cell infused. Possible endoscopy on Tuesday. Objective vital signs Vital Sign Date Time Temp Pulse Resp B/P (MAP) Pulse Ox O2 Delivery O2 Flow Rate FiO2 09/09/24 15:03 98.0 69 16 100/53 98.0 09/09/24 13:00 92 09/09/24 08:00 Nasal Cannula* 3 32 Total Intake and Output 09/08/24 09/08/24 09/09/24 15:00 23:00 07:00 Intake Total 100 ml 850 ml 480 ml Balance 100 ml 850 ml 480 ml medications Current Medications Medications Dose Ordered Sig/Reggie Route Start Time Stop Time Status Last Admin Dose Admin Pantoprazole Sodium 40 mg BID IV 09/08/24 10:00 09/09/24 09:07 40 MG Ondansetron HCl 4 mg Q6HPRN PRN IV 09/07/24 23:15 09/08/24 12:07 4 MG Levetiracetam 100 ml @ 400 mls/hr BID IV 09/08/24 10:00 09/08/24 21:54 400 MLS/HR Hydralazine HCl 10 mg Q6HP PRN IV 09/08/24 03:45 Sucralfate 1 gm QID@0600,1130,1700,2200 PO 09/08/24 11:30 09/09/24 11:46 1 GM Ceftriaxone Sodium 50 ml @ 100 mls/hr DAILY@09 IV 09/09/24 09:00 09/09/24 09:07 100 MLS/HR Sodium Chloride 1,000 ml @ 100 mls/hr Q10H IV 09/08/24 12:00 09/09/24 09:21 100 MLS/HR Morphine Sulfate 1 mg Q6HP PRN IV 09/08/24 12:00 Acetaminophen 650 mg Q6HP PRN PO 09/08/24 12:00 09/08/24 12:23 650 MG Patient Own Medication 50 mg BID PO 09/09/24 22:00 Examination General examination- pale conjunctiva HEENT- PEERLA, no acute nasal discharge Cardiovascular- S1-S2 audible, rate and rhythm regular, no murmur Respiratory- CTAB, no wheeze or rhonchi Gastrointestinal-nontender, bowel sound+. Nondistended Musculoskeletal-no acute joint swelling or tenderness or redness# Lower extremity- no leg edema Neurological- cranial nerves intact, no acute dysarthria or dysphagia Psychiatry- denies depression or SI or HI Skin- fragile skin laboratory and microbiology Laboratory Tests 09/09/24 05:10 Test 09/09/24 05:10 Range/Units Serum Glucose 96 74-106 mg/dL Problem List/Assessment/Plan Problem List/Assessment/Plan # acute GI bleeding-gastrointestinal hemorrhage- recurrent hematemesis and melena # moderate anemia #UTI #Lactic acidosis #Hypomagnesemia #Colonic diverticulosis #Bronchiolitis #Sub 5 mm somewhat linear nodule in the left upper lobe #Left basilar subsegmental atelectasis. #mild calcified coronary artery disease greatest in the left anterior descending artery. #hypertension, #CKD stage 3, #epilepsy, #depression, #history of brain tumor, status post brain surgery, status post chemo and radiotherapy, #cholelithiasis, #hiatal hernia #UDS positive for benzodiazepine. # symptomatic anemia due to possible GI bleed -CT abdomen revealed-Mild distal colonic diverticulosis. No bowel obstruction, fluid collection, or free air. Normal appendix. Duplicated left renal collecting system. Mild to moderate centrilobular emphysema. Multiple tiny ground-glass nodules in the bilateral lungs. In the setting of emphysema consider respiratory bronchiolitis. Sub 5 mm somewhat linear nodule in the left upper lobe, nonspecific on initial exam. Follow-up CT chest for surveillance could be obtained in 1 year for re-evaluation if clinically indicated. At -CXR- Subtle lucency at the right heart border may represent small volume pneumomediastinum versus artifact. No appreciable pneumothorax. Moderate hiatal hernia. Left basilar subsegmental atelectasis. Continue normal saline 100 mL/hour Continue levetiracetam as prescribed Pantoprazole 40 mg IV b.i.d. Sucralfate suspension 1 g p.o. q.6h Ceftriaxone 1 g IV daily - 1 Unit PRBC transfused today due to Hb was 7.1 and patient has Low BP with dizziness. -NPO after midnight for EGD on 09/10/24 am Goals of care/advance care planning; FULL CODE; discussed with the patient >15 minutes PUD prophylaxis: Pantoprazole DVT prophylaxis: Compression device Plan discussed with Dr. Dee Total time spent on patient evaluation, chart review, assessment and plan, discussion 23 minutes Plan discussed with: Patient My Orders My Orders Orders - NICOLE RAMIREZ RESIDENT Procedure Category Date Status Time (Nf) Brivaracetam PHA 09/09/24 In Process (Briviact) 22:00 Date of Service: Sep 09, 2024 Billing Provider: YOUSUF DEE MD Common Visit Codes: [id number] INP/OBS CARE(HIGH) NICOLE RAMIREZ Sep 09, 2024 15:54 YOUSUF DEE MD Sep 10, 2024 16:50
[2024-09-09] MEDS: BRIVARACETAM 50 MG PO SCH (21:45)
[2024-09-10] VITALS (10 sets, daily range): BP systolic 84–139; BP diastolic 38–75; PULSE 65–91; RESP 16–19; TEMP 97.5–99.1; O2SAT 93–100
[2024-09-10 06:53] LABS: Basophils # (auto) 0 10 ^3/uL (0-0.2); Basophils % (auto) 0.4 % (0.0-2.0); Eosinophils # (auto) 0.1 10 ^3/uL (0-0.8); Eosinophils % (auto) 1.6 % (0.0-7.0); Hematocrit 24.8 % (36.0-46.0); Hemoglobin 8.3 g/dL (12.2-16.2); Lymphocytes # (auto) 1.2 10 ^3/uL (0.4-5.4); Lymphocytes % (auto) 27.4 % (10.0-50.0); Mean Corpuscular Hemoglobin 30.7 pg (28.0-32.0); Mean Corpuscular Hgb Conc. 33.6 g/dL (32.0-36.0); Mean Corpuscular Volume 91.5 fL (80.0-100.0); Monocytes # (auto) 0.4 10 ^3/uL (0-1.3); Monocytes % (auto) 10.4 % (0.0-12.0); Neutrophils # (auto) 2.6 10 ^3/uL (1.6-8.6); Neutrophils % (auto) 60.2 % (37.0-80.0); Platelet Count (auto) 218 10^3/uL (140-450); Red Blood Cells 2.71 10^6/uL (4.0-5.20); Red Cell Distribution Width 14.9 % (11.8-14.3); White Blood Cell 4.3 10^3/uL (4.4-10.8)
[2024-09-10 07:17] LABS: Potassium 3.7 mmol/L (3.5-5.1); Sodium 145 mmol/L (136-145)
[2024-09-10 07:18] LABS: Anion Gap 8 (5-15); Calcium 8.3 mg/dL (8.7-10.4); Carbon Dioxide 23 mmol/L (20-31); Chloride 114 mmol/L (98-107)
[2024-09-10 07:23] LABS: BUN/Creatinine Ratio 8.9 (10.0-20.0); Glucose 86 mg/dL (74-106)
[2024-09-10 07:28] LABS: Blood Urea Nitrogen 9 mg/dL (9-23)
[2024-09-10] MEDS ORDERED: SODIUM CHLORIDE LOCK 10 ML ONE (08:10)
[2024-09-10] MEDS: SODIUM CHLORIDE 0.9% 1,000 ML IV ONE (09:00)
[2024-09-10] MEDS: diphenhdrAMINE HCL 50 MG/1 ML VL ONE (09:55)
[2024-09-10] MEDS: MIDAZOLAM HCL 5 MG/ML-1ML VIAL ONE (09:55)
[2024-09-10] MEDS: fentaNYL CITRATE 100 MCG/2 ML VL ONE (09:55)
[2024-09-10] MEDS: LIDOCAINE VISCOUS 2% 15ML UD ONE (09:55)
--- NOTE | 2024-09-10 10:09 | DVHOP2 ---
Operative Report DATE OF OPERATION: 09/10/24 PROCEDURE: Upper Endoscopy with biopsy. PREOPERATIVE INDICATION: The patient is a 73 -year-old female undergoing endoscopy for coffee-ground emesis and melena POSTOPERATIVE DIAGNOSES: 1. 5-6 cm sliding-type hiatal hernia with linear Josiah's erosions and ulcers at the diaphragmatic impingement 2. Minimal gastroduodenitis otherwise normal examination up to the 2nd and 3rd part of the duodenal with no active bleeding PROCEDURE PERFORMED BY: Woo Rosas GI NURSE: Rosana SCOPE: Olympus videoendoscope. ASA CLASS: 2. PREOPERATIVE MEDICATIONS: Versed 1 mg, Fentanyl 25 mcg, Benadryl 50 mg I administered moderate sedation throughout this _12_ minutes procedure. An independent trained observer pushed medications at my direction, and monitored the patient's level of consciousness and physiological status throughout. PROCEDURE IN DETAIL: After obtaining an informed consent, the patient was placed on left lateral decubitus position. The patient was then sedated with the above medications. A bite block was placed between her teeth. The endoscope was then passed through the oropharynx, into the esophagus, and through the stomach and pylorus up to the second and third part of the duodenum. The endoscope was then withdrawn. The 2nd and 3rd part of the duodenal were normal and the duodenal bulb showed minimal duodenitis Duodenal biopsies were obtained. The pre-pyloric area antrum and body showed minimal gastritis. Gastric biopsies were obtained There was no fresh or old blood in the upper GI tract. On retroflexion a hiatal hernia with Josiah's erosions were noted. The endoscope was then withdrawn into the distal esophagus where the patient had a 6 cm sliding-type hiatal hernia There were linear gastric ulcers and erosions of the diaphragmatic impingement. GE junction biopsies were obtained. The remaining distal and proximal esophagus and oropharynx were unremarkable The patient tolerated the procedure well without difficulty. COMPLICATIONS : None SPECIMENS: Duodenal biopsies Gastric biopsies GE junction biopsies DISPOSITION: Transfer back to the floor Stable PLAN: 1. Await for biopsy result 2. Will place pt on Protonix 40 mg bid 3. Carafate 1 g p.o. 4 times a day 4. DC aspirin NSAIDs smoking alcohol 5. Patient will need to be maintained on a PPI and iron supplements 6. Resume soft mechanical diet advance as tolerated 7. Outpatient follow up with pa next available appointment for ongoing further management WOO ROSAS MD Sep 10, 2024 10:09
--- NOTE | 2024-09-10 17:56 | DVHPNRES ---
Progress Note Date Seen: Sep 10, 2024 Resident Creating Document: TOM DONALDSON RESIDENT Medical Necessity Reason Pt with a Central, PICC or Fol: No Subjective Review of Systems Patient is 73 years old female with past medical history of hypertension, CKD stage 3, epilepsy, depression, history of brain tumor, status post brain surgery, status post chemo and radiotherapy, cholelithiasis, hiatal hernia visiting from [place] came with a complaint of ground-glass emesis. As per patient patient has been having ground-glass emesis started on day September 05. Patient reported she has Dick and she was feeling acid reflux and put her fingers into the mouth to throw up to get it with the gases but she started having ground-glass emesis after that. Patient also reported seeing blood in her stool, having black tarry colored stool. Patient reported that she 1st time had ground-glass Mrs. on August 24. Patient also reports some dizziness following emesis. Patient denied any chest pain, shortness of breath, abdominal pain, dysuria, acute joint pain or swelling, sick contact. Initial lab workup revealed anemia with a hemoglobin 9.1, serum creatinine 1.13, BUN 36, magnesemia 1.5, elevated lactic acid 2.8, FOBT positive. Bilirubin/AST/ALT/alkaline phosphatase within normal limit. Urinalysis positive for UTI with nitrite 2+, leukocyte esterase 3+, WBC 71, RBC 3, bacteria many.UDS positive for benzodiazepine. CT abdomen revealed-Mild distal colonic diverticulosis. No bowel obstruction, fluid collection, or free air. Normal appendix. Duplicated left renal collecting system. Mild to moderate centrilobular emphysema. Multiple tiny ground-glass nodules in the bilateral lungs. In the setting of emphysema consider respiratory bronchiolitis. Sub 5 mm somewhat linear nodule in the left upper lobe, nonspecific on initial exam. Follow-up CT chest for surveillance could be obtained in 1 year for re- evaluation if clinically indicated. At least mild calcified coronary artery disease greatest in the left anterior descending artery. CXR- Subtle lucency at the right heart border may represent small volume pneumomediastinum versus artifact. No appreciable pneumothorax. Moderate hiatal hernia. Left basilar subsegmental atelectasis. Past medical history: Hypertension, brain tumor s/p surgery, chemo, radiation, stage 3 kidney disease, cholelithiasis, hiatal hernia, depression, GERD, epilepsy Past surgical history: Brain surgery for brain tumor, umbilical hernia repair, laparotomy 1982 for ruptured ectopic Social history: Patient lives with the in [place], admits to vaping but denies smoking cigarettes, alcohol, drug use. Home medications: Amlodipine 2.5 mg, atorvastatin 20 mg, Briviact 50 mg b.i.d., hydrochlorothiazide 25 mg, meclizine 25 mg, naproxen 500 mg, olmesartan 40 mg, omeprazole 40, sertraline 50 mg, tramadol 50 mg Allergy- atenolol, levofloxacin Patient was seen today at the bedside. Cardiovascular- deny acute chest pain or shortness of breath or cough or palpitation Respiratory- denies cough or short of breath or wheezing Gastrointestinal- denies any rectal bleeding, nausea or vomiting Musculoskeletal-denies acute joint swelling or tenderness or redness Neurological- denies acute dysarthria, dysphagia, change in vision Psychiatry- denies depression or SI or HI Skin- denies acute rash or purpura Patient was seen today for clinical evaluation. Labs and chart reviewed. Patient had endoscopy today. Endoscopy revealed 1. 5-6 cm sliding-type hiatal hernia with linear Josiah's erosions and ulcers at the diaphragmatic impingement. Minimal gastroduodenitis otherwise normal examination up to the 2nd and 3rd part of the duodenal with no active bleeding . Ordered orthostatic vitals. Objective vital signs Vital Sign Date Time Temp Pulse Resp B/P (MAP) Pulse Ox O2 Delivery O2 Flow Rate FiO2 09/10/24 13:00 97.5 65 17 113/70 (84) 98 97.5 09/10/24 10:10 Nasal Cannula 4.0 100 Total Intake and Output 09/09/24 09/09/24 09/10/24 15:00 23:00 07:00 Intake Total 50 ml 600 ml 1200 ml Balance 50 ml 600 ml 1200 ml medications Current Medications Medications Dose Ordered Sig/Reggie Route Start Time Stop Time Status Last Admin Dose Admin Pantoprazole Sodium 40 mg BID IV 09/08/24 10:00 09/10/24 12:00 40 MG Ondansetron HCl 4 mg Q6HPRN PRN IV 09/07/24 23:15 09/08/24 12:07 4 MG Levetiracetam 100 ml @ 400 mls/hr BID IV 09/08/24 10:00 09/09/24 21:44 400 MLS/HR Hydralazine HCl 10 mg Q6HP PRN IV 09/08/24 03:45 Sucralfate 1 gm QID@0600,1130,1700,2200 PO 09/08/24 11:30 09/10/24 17:07 1 GM Ceftriaxone Sodium 50 ml @ 100 mls/hr DAILY@09 IV 09/09/24 09:00 09/09/24 09:07 100 MLS/HR Sodium Chloride 1,000 ml @ 100 mls/hr Q10H IV 09/08/24 12:00 09/10/24 04:31 100 MLS/HR Morphine Sulfate 1 mg Q6HP PRN IV 09/08/24 12:00 Acetaminophen 650 mg Q6HP PRN PO 09/08/24 12:00 09/08/24 12:23 650 MG Patient Own Medication 50 mg BID PO 09/09/24 22:00 09/10/24 12:01 50 MG Examination General examination- pale conjunctiva HEENT- PEERLA, no acute nasal discharge Cardiovascular- S1-S2 audible, rate and rhythm regular, no murmur Respiratory- CTAB, no wheeze or rhonchi Gastrointestinal-nontender, bowel sound+. Nondistended Musculoskeletal-no acute joint swelling or tenderness or redness# Lower extremity- no leg edema Neurological- cranial nerves intact, no acute dysarthria or dysphagia Psychiatry- denies depression or SI or HI Skin- fragile skin laboratory and microbiology Laboratory Tests 09/10/24 05:30 Test 09/10/24 05:30 Range/Units Serum Glucose 86 74-106 mg/dL Microbiology Date/Time Source Procedure Growth Status 09/08/24 22:49 Voided Urine Urine Culture - Preliminary Resulted Problem List/Assessment/Plan Problem List/Assessment/Plan # acute GI bleeding-gastrointestinal hemorrhage- recurrent hematemesis and melena # Minimal gastroduodenitis # moderate anemia #UTI #Lactic acidosis #Hypomagnesemia #Colonic diverticulosis #Bronchiolitis #Sub 5 mm somewhat linear nodule in the left upper lobe #Left basilar subsegmental atelectasis. #mild calcified coronary artery disease greatest in the left anterior descending artery. #hypertension, #CKD stage 3, #epilepsy, #depression, #history of brain tumor, status post brain surgery, status post chemo and radiotherapy, #cholelithiasis, #hiatal hernia #UDS positive for benzodiazepine. Patient was seen today for clinical evaluation. Labs and chart reviewed. Patient had endoscopy today. Endoscopy revealed 1. 5-6 cm sliding-type hiatal hernia with linear Josiah's erosions and ulcers at the diaphragmatic impingement. Minimal gastroduodenitis otherwise normal examination up to the 2nd and 3rd part of the duodenal with no active bleeding . Ordered orthostatic vitals. -CT abdomen revealed-Mild distal colonic diverticulosis. No bowel obstruction, fluid collection, or free air. Normal appendix. Duplicated left renal collecting system. Mild to moderate centrilobular emphysema. Multiple tiny ground-glass nodules in the bilateral lungs. In the setting of emphysema consider respiratory bronchiolitis. Sub 5 mm somewhat linear nodule in the left upper lobe, nonspecific on initial exam. Follow-up CT chest for surveillance could be obtained in 1 year for re-evaluation if clinically indicated. At -CXR- Subtle lucency at the right heart border may represent small volume pneumomediastinum versus artifact. No appreciable pneumothorax. Moderate hiatal hernia. Left basilar subsegmental atelectasis. Continue normal saline 100 mL/hour Continue levetiracetam as prescribed Pantoprazole 40 mg IV b.i.d. Sucralfate suspension 1 g p.o. q.6h Ceftriaxone 1 g IV daily Goals of care/advance care planning; FULL CODE; discussed with the patient >15 minutes PUD prophylaxis: Pantoprazole DVT prophylaxis: Compression device Plan discussed with Irvin Payne, nursing staff, patient Total time spent on patient evaluation, chart review, assessment and plan, discussion discussion >30 minutes Plan discussed with: Patient Plan discussed with: Patient, Daughter, Other (RN) My Orders My Orders Orders - TOM DONALDSON Procedure Category Date Status Time Orthostatic Vital ORDERS 09/10/24 Transmitted Signs 15:27 Date of Service: Sep 10, 2024 Billing Provider: YAMILET VELASCO MD Common Visit Codes: [id number] INP/OBS CARE(MOD) TOM DONALDSON Sep 10, 2024 17:56 YAMILET VELASCO MD Sep 11, 2024 14:17
[2024-09-10] MEDS: DOCUSATE SOD 100 MG CAP PO PRN (22:02)
[2024-09-11 01:00] VITALS: BP 148/70; PULSE 90; RESP 18; TEMP 98.2; O2SAT 93
[2024-09-11 05:00] VITALS: BP 109/74; PULSE 86; RESP 18; TEMP 99.1; O2SAT 98
[2024-09-11] MEDS: MORPHINE SULFATE INJ 2 MG/ml SYRG IV PRN (06:04)
[2024-09-11 07:00] LABS: Basophils # (auto) 0 10 ^3/uL (0-0.2); Basophils % (auto) 0.3 % (0.0-2.0); Eosinophils # (auto) 0 10 ^3/uL (0-0.8); Eosinophils % (auto) 0.2 % (0.0-7.0); Hematocrit 27.2 % (36.0-46.0); Hemoglobin 8.9 g/dL (12.2-16.2); Lymphocytes # (auto) 0.5 10 ^3/uL (0.4-5.4); Lymphocytes % (auto) 10.7 % (10.0-50.0); Mean Corpuscular Hemoglobin 30.4 pg (28.0-32.0); Mean Corpuscular Hgb Conc. 32.8 g/dL (32.0-36.0); Mean Corpuscular Volume 92.5 fL (80.0-100.0); Monocytes # (auto) 0.5 10 ^3/uL (0-1.3); Monocytes % (auto) 9.5 % (0.0-12.0); Neutrophils % (auto) 79.3 % (37.0-80.0); Platelet Count (auto) 229 10^3/uL (140-450); Red Blood Cells 2.94 10^6/uL (4.0-5.20)
[2024-09-11 07:09] LABS: Anion Gap 9 (5-15); Carbon Dioxide 22 mmol/L (20-31); Potassium 3.7 mmol/L (3.5-5.1)
[2024-09-11 07:10] LABS: Calcium 8.9 mg/dL (8.7-10.4)
[2024-09-11 07:15] LABS: BUN/Creatinine Ratio 6.5 (10.0-20.0); Chloride 114 mmol/L (98-107); Glucose 100 mg/dL (74-106); Sodium 145 mmol/L (136-145)
[2024-09-11 07:16] LABS: Magnesium 1.9 mg/dL (1.6-2.6)
[2024-09-11 07:18] LABS: Blood Urea Nitrogen 7 mg/dL (9-23)
[2024-09-11 08:00] VITALS: PULSE 90; PULSE 94; RESP 16; O2SAT 96
[2024-09-11 08:46] VITALS: BP 100/55; PULSE 90; RESP 16; TEMP 98; O2SAT 96
[2024-09-11] MEDS ORDERED: NITR-87 PO ×2 (09:28→13:37)
[2024-09-11] MEDS ORDERED: SUCR1TAB31 OR (09:29)
--- NOTE | 2024-09-11 09:32 | DVH ---
INDICATION: BACK PAIN TECHNIQUE: 4 views of the lumbar spine were obtained. COMPARISON: None FINDINGS: No acute fracture. Chronic Grade 2 anterolisthesis of L5 on S1. Vascular calcifications of the aorta. IMPRESSION: No acute fracture or subluxation.
[2024-09-11 11:24] VITALS: BP 100/55; PULSE 90; RESP 16; TEMP 98; O2SAT 96
[2024-09-11 13:28] VITALS: BP 101/58; PULSE 93; RESP 19; TEMP 97.8; O2SAT 97
[2024-09-11] MEDS ORDERED: SUCR1SUS26 PO (13:37)
[2024-09-11] MEDS ORDERED: PANT40TA2 PO (13:37)
[2024-09-11] MEDS ORDERED: ALUMSUS16 PO (13:37)
[2024-09-11] MEDS ORDERED: ZOFR4T PO (13:40)
[2024-09-11] MEDS: ONDANSETRON ODT 4 MG TAB PO ONE (13:50)
--- NOTE | 2024-09-11 15:34 | DVHDSRES ---
Discharge Summary Date of Admission Resident Creating Document: TOM DONALDSON RESIDENT Sep 07, 2024 at 23:04 Date of Discharge: Sep 11, 2024 Admitting Diagnosis Acute upper GI bleeding Labs/Diagnostic Data: Laboratory Results Test 09/11/24 05:26 09/10/24 23:38 09/10/24 05:30 09/08/24 09:10 White Blood Count 5.0 10^3/uL (4.4-10.8) Red Blood Count 2.94 10^6/uL (4.0-5.20) Hemoglobin 8.9 g/dL (12.2-16.2) Hematocrit 27.2 % (36.0-46.0) Mean Corpuscular Volume 92.5 fL (80.0-100.0) Mean Corpuscular Hemoglobin 30.4 pg (28.0-32.0) Mean Corpuscular Hemoglobin Concent 32.8 g/dL (32.0-36.0) Red Cell Distribution Width 15.0 % (11.8-14.3) Platelet Count 229 10^3/uL (140-450) Mean Platelet Volume 8.1 fL (6.9-10.8) Neutrophils (%) (Auto) 79.3 % (37.0-80.0) Lymphocytes (%) (Auto) 10.7 % (10.0-50.0) Monocytes (%) (Auto) 9.5 % (0.0-12.0) Eosinophils (%) (Auto) 0.2 % (0.0-7.0) Basophils (%) (Auto) 0.3 % (0.0-2.0) Neutrophils # (Auto) 4.0 10 ^3/uL (1.6-8.6) Lymphocytes # (Auto) 0.5 10 ^3/uL (0.4-5.4) Monocytes # (Auto) 0.5 10 ^3/uL (0-1.3) Eosinophils # (Auto) 0 10 ^3/uL (0-0.8) Basophils # (Auto) 0 10 ^3/uL (0-0.2) Nucleated Red Blood Cells 0.0 % Sodium Level 145 mmol/L (136-145) Potassium Level 3.7 mmol/L (3.5-5.1) Chloride Level 114 mmol/L (98-107) Carbon Dioxide Level 22 mmol/L (20-31) Anion Gap 9 (5-15) Blood Urea Nitrogen 7 mg/dL (9-23) Creatinine 1.08 mg/dL (0.550-1.02) Glomerular Filtration Rate Calc 55 mL/min (>90) BUN/Creatinine Ratio 6.5 (10.0-20.0) Serum Glucose 100 mg/dL (74-106) Calcium Level 8.9 mg/dL (8.7-10.4) Magnesium Level 1.9 mg/dL (1.6-2.6) Stool for White Cells None seen Lactic Acid Level 0.7 mmol/L (0.4-2.0) Prothrombin Time 11.1 sec (9.3-11.8) Prothrombin Time INR 1.05 (0.9-1.15) Hemoglobin A1c 5.8 % A1C (<5.7) Total Bilirubin 0.2 mg/dL (0.2-1.0) Direct Bilirubin < 0.1 mg/dL (<0.3) Aspartate Amino Transferase (AST) 13 U/L (13-40) Alanine Aminotransferase (ALT) 13 U/L (7-40) Alkaline Phosphatase 60 U/L (46-116) B-Type Natriuretic Peptide 43.18 pg/mL (0-100) Total Protein 6.0 g/dL (5.7-8.2) Albumin 4.0 g/dL (3.2-4.8) Thyroid Stimulating Hormone (TSH) 2.75 uIU/mL (0.55-4.78) Plasma/Serum Blood Alcohol < 3.0 mg/dL (<10) Test 09/08/24 00:01 09/07/24 20:31 09/07/24 18:32 09/07/24 16:42 Stool Occult Blood Positive (Negative) Stool Occult Blood Sample #3 (Negative) Urine Color Yellow (Yellow) Urine Clarity Turbid (Clear) Urine pH 5.5 (5.0-9.0) Urine Specific [place] 1.021 (1.001-1.035) Urine Protein Trace (Negative) Urine Ketones Trace (Negative) Urine Blood 1+ /uL (Negative) Urine Nitrite 2+ (Negative) Urine Bilirubin Negative (Negative) Urine Urobilinogen Normal mg/dL (Negative) Urine Leukocyte Esterase 3+ /uL (Negative) Urine RBC 3 /hpf (0 - 4) Urine WBC 71 /hpf (0 - 5) Urine WBC Clumps Present /hpf (None Seen) Urine Squamous Epithelial Cells Few /hpf (<5) Urine Bacteria Many /hpf (None Seen) Urine Mucus Moderate (None Seen) Urine Glucose Normal mg/dL (Normal) Urine Opiates Screen Neg (NEGATIVE) Urine Fentanyl Screen Neg (NEGATIVE) Urine Barbiturates Screen Neg (NEGATIVE) Urine Phencyclidine Screen Neg (NEGATIVE) Urine Amphetamines Screen Neg (NEGATIVE) Urine Benzodiazepines Screen Pos (NEGATIVE) Urine Cocaine Screen Neg (NEGATIVE) Urine Cannabinoids Screen Neg (NEGATIVE) Troponin I High Sensitivity < 3 ng/L (</=34) Lipase 34 U/L (12-53) Other Laboratory Tests 09/11/24 05:26 Brief Hx & Hospital Course: Patient is 73 years old female with past medical history of hypertension, CKD stage 3, epilepsy, depression, history of brain tumor, status post brain surgery, status post chemo and radiotherapy, cholelithiasis, hiatal hernia visiting from [place] came with a complaint of ground-glass emesis. As per patient patient has been having ground-glass emesis started on day September 05. Patient reported she has Dick and she was feeling acid reflux and put her fingers into the mouth to throw up to get it with the gases but she started having ground-glass emesis after that. Patient also reported seeing blood in her stool, having black tarry colored stool. Patient reported that she 1st time had ground-glass Mrs. on August 24. Patient also reports some dizziness following emesis. Patient denied any chest pain, shortness of breath, abdominal pain, dysuria, acute joint pain or swelling, sick contact. Initial lab workup revealed anemia with a hemoglobin 9.1, serum creatinine 1.13, BUN 36, magnesemia 1.5, elevated lactic acid 2.8, FOBT positive. Bilirubin/AST/ALT/alkaline phosphatase within normal limit. Urinalysis positive for UTI with nitrite 2+, leukocyte esterase 3+, WBC 71, RBC 3, bacteria many.UDS positive for benzodiazepine. CT abdomen revealed-Mild distal colonic diverticulosis. No bowel obstruction, fluid collection, or free air. Normal appendix. Duplicated left renal collecting system. Mild to moderate centrilobular emphysema. Multiple tiny ground-glass nodules in the bilateral lungs. In the setting of emphysema consider respiratory bronchiolitis. Sub 5 mm somewhat linear nodule in the left upper lobe, nonspecific on initial exam. Follow-up CT chest for surveillance could be obtained in 1 year for re- evaluation if clinically indicated. At least mild calcified coronary artery disease greatest in the left anterior descending artery. CXR- Subtle lucency at the right heart border may represent small volume pneumomediastinum versus artifact. No appreciable pneumothorax. Moderate hiatal hernia. Left basilar subsegmental atelectasis. During hospitalization as patient's hemoglobin was dropping and patient developed hypotension patient was given 1 red blood cell transfusion. Patient had endoscopy on 09/10/2024.. Endoscopy revealed 1. 5-6 cm sliding-type hiatal hernia with linear Josiah's erosions and ulcers at the diaphragmatic impingement. Minimal gastroduodenitis otherwise normal examination up to the 2nd and 3rd part of the duodenal with no active bleeding . Patient's symptoms clinically improved. Patient is being discharged with pantoprazole 40 mg b.i.d. and Carafate 1 g q.6 H. was also prescribed Macrobid on discharge due to UTI. supine improved clinically. Patient meds sent to the pharmacy electronically. Patient was advised to follow up with the Gastroenterology in 2-4 weeks and also to follow up with the primary care physician in 1 week. Patient verbalized understanding. Patient was hemodynamically stable on discharge Past medical history: Hypertension, brain tumor s/p surgery, chemo, radiation, stage 3 kidney disease, cholelithiasis, hiatal hernia, depression, GERD, epilepsy Past surgical history: Brain surgery for brain tumor, umbilical hernia repair, laparotomy 1982 for ruptured ectopic Social history: Patient lives with the in [place], admits to vaping but denies smoking cigarettes, alcohol, drug use. Home medications: Amlodipine 2.5 mg, atorvastatin 20 mg, Briviact 50 mg b.i.d., hydrochlorothiazide 25 mg, meclizine 25 mg, naproxen 500 mg, olmesartan 40 mg, omeprazole 40, sertraline 50 mg, tramadol 50 mg Allergy- atenolol, levofloxacin Patient was seen today at the bedside. Cardiovascular- deny acute chest pain or shortness of breath or cough or palpitation Respiratory- denies cough or short of breath or wheezing Gastrointestinal- denies any rectal bleeding, nausea or vomiting Musculoskeletal-denies acute joint swelling or tenderness or redness Neurological- denies acute dysarthria, dysphagia, change in vision Psychiatry- denies depression or SI or HI Skin- denies acute rash or purpura General examination- awake, alert, no distress HEENT- PEERLA, no acute nasal discharge Cardiovascular- S1-S2 audible, rate and rhythm regular, no murmur Respiratory- CTAB, no wheeze or rhonchi Gastrointestinal-nontender, bowel sound+. Nondistended Musculoskeletal-no acute joint swelling or tenderness or redness# Lower extremity- no leg edema Neurological- cranial nerves intact, no acute dysarthria or dysphagia Psychiatry- denies depression or SI or HI Skin- fragile skin Operations or Procedures DIAGNOSTIC IMAGING Diagnostic Imaging Report : [id number] Signed PATIENT: GINNA CHURCH LYNNACCT: [id number] UNIT: [id number] : 1950 LOC: ER ROOM / BED: / AGE / SEX: 73 / F ADM STATUS: REG ER SERVICE 39 ORDERING PHYSICIAN: YANDY MONTAÑO PAC PROCEDURE(s): CTCAP - CHST AB PEL WO CON-NO IV/ORAL REASON: GI BLEED ORDER NUMBER(s): [id number], ACCESSION NUMBER(s): [id number] CLINICAL HISTORY: GI BLEED TECHNIQUE: CT of the chest, abdomen and pelvis was performed without IV contrast. This exam was performed according to our departmental dose optimization program. Up-to-date CT equipment and radiation dose reduction techniques are utilized as appropriate. [Radimetrics Exposure Report] CTDI: [CTDIvol] DLP: 448.68 COMPARISON: None FINDINGS: CHEST FINDINGS: Lower Neck: Unremarkable Axilla, Mediastinum and Gypsy: Moderate hiatal hernia. There is no axillary or mediastinal lymphadenopathy. Heart and Great Vessels: Normal-sized heart without pericardial effusion. At least mild calcified coronary artery disease greatest in the left anterior descending artery. The thoracic aorta is normal in caliber with moderate calcified atherosclerotic plaque. Central pulmonary arteries are normal caliber. Airway, Lungs and Pleura: Trachea and central airways are patent. There is mild centrilobular emphysema. There is a somewhat linear sub 5 mm nodule in the left upper lobe on series 4, image 29. Linear areas of atelectasis or scarring in both lungs. There is no consolidative pneumonia, pleural effusion, or pneumothorax. Multiple tiny ground-glass nodules seen in the bilateral lungs. Chest Wall and Osseous Structures: Multilevel thoracic spondylosis. No destructive osseous lesion. Abdomen and Pelvis Findings: Liver and Biliary system: Unremarkable. Spleen: Unremarkable. Adrenal Glands and Kidneys: Normal adrenal glands. Duplicated left renal collecting system. Small kidneys. There is no hydronephrosis. Pancreas and Retroperitoneum: Unremarkable. Aorta and Major Vessels: Aortoiliac vessels are normal in caliber containing moderate calcified atherosclerotic plaque. Bowel, Mesentery and Peritoneal space: Normal appendix. Mild distal colonic diverticulosis. Normal caliber small and large bowel. No free air or fluid collection. Pelvis: There is a fibroid uterus. Urinary bladder is mildly distended. Punctate nondependent gas in the urinary bladder. There is no pelvic lymphadenopathy. Abdominal wall and Osseous Structures: Intramuscular lipoma within the right iliacus muscle. Grade 2 anterolisthesis at L5-S1. Mild lumbar spondylosis. No destructive osseous lesion. IMPRESSION: 1. Mild distal colonic diverticulosis. No bowel obstruction, fluid collection, or free air. Normal appendix. 2. Duplicated left renal collecting system. 3. Mild to moderate centrilobular emphysema. 4. Multiple tiny ground-glass nodules in the bilateral lungs. In the setting of emphysema consider respiratory bronchiolitis. 5. Sub 5 mm somewhat linear nodule in the left upper lobe, nonspecific on initial exam. Follow-up CT chest for surveillance could be obtained in 1 year for re-evaluation if clinically indicated. 6. At least mild calcified coronary artery disease greatest in the left anterior descending artery. ATED BY: MONIKA ANTUNEZ MD DICTATED DATE/TIME: 09/07/242132 SIGNED BY: MONIKA ANTUNEZ MD SIGNED DATE/TIME: 09/07/242132 CC: Diagnostic Imaging Report : [id number] Signed PATIENT: GINNA CHURCH LACCT: [id number] UNIT: [id number] : 1950 LOC: [facility] AGE / SEX: 73 / F ADM STATUS: ADM IN SERVICE 0857 ORDERING PHYSICIAN: TOM DONALDSON RESIDENT PROCEDURE(s): CXR2 - CHEST TWO VIEWS ROUTINE REASON: RULE OUT pneumothorax/mediadtenitis ORDER NUMBER(s): [id number], ACCESSION NUMBER(s): [id number] CHEST RADIOGRAPH Indication: RULE OUT pneumothorax/mediadtenitis Technique: Frontal and lateral view of the chest was obtained Comparison: CHEST TWO VIEWS ROUTINE on DOS: 07/08/20 FINDINGS: Lines and Tubes: None Lungs: Left basilar subsegmental atelectasis. Pleura: No effusion. No pneumothorax. Cardiomediastinal contours: Lucency at the right heart border. Moderate hiatal hernia. Bones: Unremarkable IMPRESSION: Subtle lucency at the right heart border may represent small volume pneumomediastinum versus artifact. No appreciable pneumothorax. Moderate hiatal hernia. Left basilar subsegmental atelectasis. ATED BY: JUAN M MARLEY MD DICTATED DATE/TIME: 09/08/241003 SIGNED BY: JUAN M MARLEY MD SIGNED DATE/TIME: 09/08/24 100 CC: DIAGNOSTIC IMAGING Diagnostic Imaging Report : [id number] Signed PATIENT: GINNA CHURCH LACCT: [id number] UNIT: [id number] : 1950 LOC: [facility] ROOM / BED: [place] / A AGE / SEX: 73 / F ADM STATUS: ADM IN SERVICE 5 ORDERING PHYSICIAN: TOM DONALDSON RESIDENT PROCEDURE(s): LUMB2 - LUMBAR SPINE 3 VIEW REASON: BACK PAIN ORDER NUMBER(s): [id number], ACCESSION NUMBER(s): [id number] INDICATION: BACK PAIN TECHNIQUE: 4 views of the lumbar spine were obtained. COMPARISON: None FINDINGS: No acute fracture. Chronic Grade 2 anterolisthesis of L5 on S1. Vascular calcifications of the aorta. IMPRESSION: No acute fracture or subluxation. ATED BY: JUAN M MARLEY MD DICTATED DATE/TIME: 09/11/24929 SIGNED BY: JUAN M MARLEY MD SIGNED DATE/TIME: 09/11/24929 CC: Patient: GINNA CHURCH Acct: [id number] : 1950 Loc: [facility] Age/Sex: 73/F Room: 0214T / Bed: A Attending Phy: TOM DONALDSON RESIDENT Operative Report DATE OF OPERATION: 09/10/24 PROCEDURE: Upper Endoscopy with biopsy. PREOPERATIVE INDICATION: The patient is a 73 -year-old female undergoing endoscopy for coffee-ground emesis and melena POSTOPERATIVE DIAGNOSES: 1. 5-6 cm sliding-type hiatal hernia with linear Josiah's erosions and ulcers at the diaphragmatic impingement 2. Minimal gastroduodenitis otherwise normal examination up to the 2nd and 3rd part of the duodenal with no active bleeding PROCEDURE PERFORMED BY: Woo Juarez GI NURSE: Rosana SCOPE: Olympus videoendoscope. ASA CLASS: 2. PREOPERATIVE MEDICATIONS: Versed 1 mg, Fentanyl 25 mcg, Benadryl 50 mg I administered moderate sedation throughout this _12_ minutes procedure. An independent trained observer pushed medications at my direction, and monitored the patient's level of consciousness and physiological status throughout. PROCEDURE IN DETAIL: After obtaining an informed consent, the patient was placed on left lateral decubitus position. The patient was then sedated with the above medications. A bite block was placed between her teeth. The endoscope was then passed through the oropharynx, into the esophagus, and through the stomach and pylorus up to the second and third part of the duodenum. The endoscope was then withdrawn. The 2nd and 3rd part of the duodenal were normal and the duodenal bulb showed minimal duodenitis Duodenal biopsies were obtained. The pre-pyloric area antrum and body showed minimal gastritis. Gastric biopsies were obtained There was no fresh or old blood in the upper GI tract. On retroflexion a hiatal hernia with Josiah's erosions were noted. The endoscope was then withdrawn into the distal esophagus where the patient had a 6 cm sliding-type hiatal hernia There were linear gastric ulcers and erosions of the diaphragmatic impingement. GE junction biopsies were obtained. The remaining distal and proximal esophagus and oropharynx were unremarkable The patient tolerated the procedure well without difficulty. COMPLICATIONS : None SPECIMENS: Duodenal biopsies Gastric biopsies GE junction biopsies DISPOSITION: Transfer back to the floor Stable PLAN: 1. Await for biopsy result 2. Will place pt on Protonix 40 mg bid 3. Carafate 1 g p.o. 4 times a day 4. DC aspirin NSAIDs smoking alcohol 5. Patient will need to be maintained on a PPI and iron supplements 6. Resume soft mechanical diet advance as tolerated 7. Outpatient follow up with me next available appointment for ongoing further management WOO JUAREZ MD Sep 10, 2024 10:09 DICTATED BY:WOO JUAREZ MD DICTATED DATE/TIME:09/10/24 1009 ELECTRONICALLY SIGNED BY:WOO JUAREZ MD 09/10/24 1009 ELECTRONICALLY CO-SIGNED BY: Condition at Discharge: Stable Final Diagnosis/Problems List # acute GI bleeding-gastrointestinal hemorrhage- recurrent hematemesis and melena # Minimal gastroduodenitis # moderate anemia #Back apin likely musculoskeletal #UTI #Lactic acidosis #Hypomagnesemia #Colonic diverticulosis #Bronchiolitis #Sub 5 mm somewhat linear nodule in the left upper lobe #Left basilar subsegmental atelectasis. #mild calcified coronary artery disease greatest in the left anterior descending artery. #hypertension, #CKD stage 3, #epilepsy, #depression, #history of brain tumor, status post brain surgery, status post chemo and radiotherapy, #cholelithiasis, #hiatal hernia #UDS positive for benzodiazepine. Discharge Disposition: Home Discharge Instruct/Medications Diet: Cardiac 2g Na,low cholest, Renal Activity: No Restrictions, As Tolerated Medications: Pantoprazole 40 mg 2 times a day Carafate 1 g every 6 hours Macrobid 100 mg p.o. b.i.d. for 3 days Maalox Symp Max Healy 1 max PO QID PEN Discharge Statement: "Patient was advised to return to the ER or call 911 if any headaches, dizziness, shortness of breath, chest pain, abdominal pain, bleeding, fevers, or worsening of medical condition. Patient was counseled about treatment plan, medications, possible side effects, patientverbalized understanding. All questions were answered to the best of my ability. This discharge took greater then 30 minutes in planning, reviewing documentation, counseling the patient, and discussing with other team members." ASSESSMENT ASSESSMENT Assessment # acute GI bleeding-gastrointestinal hemorrhage- recurrent hematemesis and melena # Minimal gastroduodenitis # moderate anemia #UTI #Lactic acidosis #Hypomagnesemia #Colonic diverticulosis #Bronchiolitis #Sub 5 mm somewhat linear nodule in the left upper lobe #Left basilar subsegmental atelectasis. #mild calcified coronary artery disease greatest in the left anterior descending artery. #hypertension, #CKD stage 3, #epilepsy, #depression, #history of brain tumor, status post brain surgery, status post chemo and radiotherapy, #cholelithiasis, #hiatal hernia #UDS positive for benzodiazepine. Date of Service: Sep 11, 2024 Billing Provider: YAMILET VELASCO MD Common Visit Codes: 65488-ITU/OBS DISCH DAY >30min TOM DONALDSON Sep 11, 2024 15:34 YAMILET VELASCO MD Sep 11, 2024 23:36
--- NOTE | 2024-09-11 22:47 | DVHPN2 ---
Progress Note - Dictate Date Seen: Sep 11, 2024 (Late entryPatient seen at bedside at 11:00 a.m.) Medical Necessity Reason Pt with a Central, PICC or Fol: No Subjective No new complaints, patient out of bed to chair Patient complains of low back pain; lumbosacral spine x-ray negative No active GI bleeding reported; no further episodes of nausea vomiting Patient is tolerating a full liquid diet, UA is positive ; patient with mild lactic acidosis, and patient is on IV Rocephin Hemoglobin stable and up to 8.9 S/P 1 unit PRBC EGD showed a large hiatal hernia with Josiah's erosions vital signs Vital Sign Date Time Temp Pulse Resp B/P (MAP) Pulse Ox O2 Delivery O2 Flow Rate FiO2 09/11/24 13:28 97.8 93 19 101/58 (72) 97 97.8 09/11/24 08:00 Nasal Cannula* 2 28 Total Intake and Output 09/10/24 09/10/24 09/11/24 15:00 23:00 07:00 Intake Total 200 ml 1580 ml 1400 ml Balance 200 ml 1580 ml 1400 ml objective WDWN female Alert and oriented x 3 NAD Gen - mild pallor, no icterus, no cyanosis, no clubbing, no LAD, no edema . HEENT - normocephalic, atraumatic, moist mucous membranes. Pulmonary - B/L vesicular breath sounds. no crackles , no wheezing, no stridor. cardiovascular - normal S1,S2 heard. no murmurs heard. GI - soft abdomen without tenderness to palpation . no hepatosplenomegaly. Bowel sounds normoactive Neurological - Non focal ,no facial droop, normal speech, no tremor, no sensory deficiets. laboratory and microbiology Laboratory Tests 09/11/24 05:26 Test 09/11/24 05:26 Range/Units Serum Glucose 100 74-106 mg/dL Stool for WBC were negative Stool for occult blood positive Problems(with codes): (1) Chest pain, atypical (2) Coffee ground emesis (3) Positive occult stool blood test (4) Nausea and vomiting (5) GERD (gastroesophageal reflux disease) (6) Urinary tract infection (7) Constipation (8) Hemorrhage due to chronic Josiah lesion (9) Chronic Josiah ulcer (10) Hiatal hernia Prognosis Plan Discharge planning is in progress Pain control Increase fluid and fiber intake PPI and Carafate DC aspirin NSAIDs smoking alcohol Avoid blood thinners and NSAIDs Outpatient follow up with me in 4-6 weeks to discuss further management Outpatient elective colonoscopy advised after reviewing previous records Plan discussed with: Patient WOO JUAREZ MD Sep 11, 2024 22:47
== END 2024-09-11 14:30 | disposition home or self-care (01) | DRG 378 ==
LOC: ER 15:59 → TELE 23:04 → ER 23:06 → TELE 23:06 → ER 23:35 → TELE-CENTR 09-08 05:16
PROVIDERS: ADMIT Student in an Organized Health Care Education/Training Program; ATTEND Emergency Medicine
PROC: 30233N1 Transfusion of Nonautologous Red Blood Cells into Peripheral Vein, Percutaneous Approach (ICD-10-PCS; 2024-09-09)
PROC: 0DB68ZX Excision of Stomach, Via Natural or Artificial Opening Endoscopic, Diagnostic (ICD-10-PCS; 2024-09-10)
PROC: 0DB48ZX Excision of Esophagogastric Junction, Via Natural or Artificial Opening Endoscopic, Diagnostic (ICD-10-PCS; 2024-09-10)
PROC: 0DB98ZX Excision of Duodenum, Via Natural or Artificial Opening Endoscopic, Diagnostic (ICD-10-PCS; principal; 2024-09-10 09:52)
DX: K25.4 Chronic or unspecified gastric ulcer with hemorrhage (principal); E87.20 Acidosis, unspecified; N39.0 Urinary tract infection, site not specified; N17.9 Acute kidney failure, unspecified; J21.9 Acute bronchiolitis, unspecified; K29.91 Gastroduodenitis, unspecified, with bleeding; K44.9 Diaphragmatic hernia without obstruction or gangrene; D64.9 Anemia, unspecified; F17.200 Nicotine dependence, unspecified, uncomplicated; G40.909 Epilepsy, unspecified, not intractable, without status epilepticus; I25.10 Atherosclerotic heart disease of native coronary artery without angina pectoris; J43.2 Centrilobular emphysema; K21.9 Gastro-esophageal reflux disease without esophagitis; K57.30 Diverticulosis of large intestine without perforation or abscess without bleeding; I12.9 Hypertensive chronic kidney disease with stage 1 through stage 4 chronic kidney disease, or unspecified chronic kidney disease; E11.22 Type 2 diabetes mellitus with diabetic chronic kidney disease; N18.30 Chronic kidney disease, stage 3 unspecified; E83.42 Hypomagnesemia; F32.A Depression, unspecified; K80.20 Calculus of gallbladder without cholecystitis without obstruction; K59.00 Constipation, unspecified; Q63.8 Other specified congenital malformations of kidney; Z88.8 Allergy status to other drugs, medicaments and biological substances; Z79.82 Long term (current) use of aspirin; Z79.899 Other long term (current) drug therapy
CPT/HCPCS: 36415; 43239; 71046; 71250; 72100; 74176; 80048; 80053; 80076; 80307; 80320; 81001; 82270; 83036; 83605; 83690; 83735; 83880; 84443; 84484; 85014; 85018; 85025; 85048; 85610; 86850; 86900; 86901; 86922; 87086; 93005; G0378; J2003; J2250; J2405; J2470; J3490; Q0162